=== PATIENT | female | born 1960 | race African-American/Black ===

== ENCOUNTER → 2016-12-01 | Outpatient (CLI) | payer BC ==
[~2016-12-01] MED LIST: ASPIRIN-LOW81 MG ORAL; HYDROCODON-ACE1 EA15 ORAL; IBUPROFEN600 MG ORAL; NORVASC10 MG ORAL
--- NOTE | 2016-12-01 12:28 | Diagnostic Imaging Report ---
Indication: Back pain for multiple months Technique: 4 views of the lumbar spine Comparison: None Findings: There is slight anterior offset of L4 on L5, without evidence of spondylolysis defect. The remainder of the bony alignment is normal. Vertebral body heights are preserved. Disc spaces are preserved. There is degenerative facet narrowing at L5-S1 on the right. The sacroiliac joint spaces are preserved. Pedicles are intact. Sacral arches are preserved. Incidentally noted are cholecystectomy clips Impression: No acute process Minimal degenerative changes, as described
--- NOTE | 2016-12-02 12:40 | Diagnostic Imaging Report ---
APPROVED REPORT CPT Code: 84751 Symptoms Comments: Pain VELOCITY MEASUREMENTS AND DOPPLER WAVEFORM ANALYSIS RIGHTcm/secWaveformSeverityLEFTcm/secWaveformSeverity Com Fem Art. TriphasicCom Fem Art. Triphasic Prof Fem Art. TriphasicProf Fem Art. Triphasic Fem Art Prox. TriphasicFem Art Prox. Triphasic Fem Art Mid. TriphasicFem Art Mid. Triphasic Fem Art Dist. TriphasicFem Art Dist. Triphasic Pop Art Prox. TriphasicPop Art Prox. Triphasic AVIATION SUPPORT EQUIPMENT REPAIRER Prox. TriphasicPTA Prox. Triphasic WILLIAM Prox. TriphasicATA Prox. Triphasic BILATERAL: Common femoral artery waveform analysis is within normal limits at rest. Color flow duplex sonography reveals minimal calcification throughout the superficial femoral, and popliteal arteries. There is no evidence of stenosis or occlusion within these segments. The tibioperoneal trunks were not well visualized. The posterior tibial, anterior tibial and dorsalis pedis arteries are also minimally calcified. Ankle-brachial indices and, Doppler tibial artery waveform analysis are within normal limits, bilaterally. LEVAR within normal limits as follows: 1.1 (right leg) and 1.1 (left leg).
--- NOTE | 2016-12-12 14:09 | Diagnostic Imaging Report ---
Indication: PAIN Technique: 3 views of the left knee Comparison: None Findings:There is degenerative narrowing of the medial joint compartment. No acute fractures. No dislocations. No gross suprapatellar effusion Impression:Degenerative changes, as described. No acute bony trauma
== END | disposition home or self-care (01) ==
LOC: RAD 10:24
DX: M79.604 Pain in right leg (principal); M54.9 Dorsalgia, unspecified
CPT/HCPCS: 72110; 93925

== ENCOUNTER 2017-01-22 22:41 | Inpatient (IN) | payer BC ==
[~2017-01-22] VITALS: Ht 167.6 cm; Wt 108.9 kg
[~2017-01-22 22:41] MED LIST changes: -ASPIRIN-LOW81 MG ORAL; -HYDROCODON-ACE1 EA15 ORAL
[2017-01-22] MEDS ORDERED: Morphine Sulfate 4mg/ml Inj IVP ONE (23:15)
[2017-01-22] MEDS ORDERED: Aspirin Baby 81mg ORAL ONE (23:15)
[2017-01-22 23:16] LABS: BASOPHILS % (AUTO) 1.3 % (0.0-2.0); EOSINOPHILS % (AUTO) 0.5 % (0.0-3.0); LYMPHOCYTES % (AUTO) 27.8 % (20.0-45.0); MEAN CORPUSCULAR HEMOGLOBIN 31.9 PG (27.0-31.0); MEAN CORPUSCULAR HGB CONC 32.6 G/DL (32.0-36.0); MEAN CORPUSCULAR VOLUME 98 FL (80-99); MEAN PLATELET VOLUME 8.1 FL (6.5-10.1); MONOCYTES % (AUTO) 7.5 % (1.0-10.0); PLATELET COUNT 214 K/UL (150-450); RED BLOOD COUNT 4.18 M/UL (4.20-5.40); RED CELL DISTRIBUTION WIDTH 13.1 % (11.6-14.8); WHITE BLOOD COUNT 5.2 K/UL (4.8-10.8)
[2017-01-22 23:20] VITALS: BP 106/45
--- NOTE | 2017-01-22 23:27 | Emergency Room Report ---
History of Present Illness General Chief Complaint: Chest Pain Source: Patient Present Illness HPI Is a 56-year-old female with a history of hypertension and chronic left hip pain. She said she would need a hip replacement per Dr. Hopper. She developed with substernal chest pain going to her neck. Has been ongoing since yesterday. Sharp in nature. Worse with movement. Denies any fever chills denies any nausea vomiting. Patient said that she is under more stress since her son was badly injured in an accident. No diaphoresis. No exertional component. Allergies: Coded Allergies: No Known Allergies (Unverified , 06/16/14) Patient History Past Medical History: see triage record, old chart reviewed, HTN Past Surgical History: other Pertinent Family History: none Social History: Denies: smoking Last Menstrual Period: NONE Now: No Immunizations: other Reviewed Nursing Documentation: PMH: Agreed, PSxH: Agreed Nursing Documentation-PMH Hx Hypertension: Yes Hx Cancer: No Hx Gastrointestinal Problems: No Review of Systems Eye: Denies: blurred vision, eye pain ENT: Denies: ear pain, nose congestion, throat swelling Respiratory: Denies: cough, shortness of breath Cardiovascular: Reports: chest pain, Denies: palpitations Gastrointestinal: Denies: abdominal pain, diarrhea, nausea, vomiting Musculoskeletal: Denies: back pain, joint pain Skin: Denies: rash Neurological: Denies: headache, numbness Endocrine: Denies: increased thirst, increased urine Hematologic/Lymphatic: Denies: easy bruising All Other Systems: negative except mentioned in HPI Physical Exam Vital Signs Date Time Temp Pulse Resp B/P Pulse Ox O2 Delivery O2 Flow Rate FiO2 01/22/17 22:48 98.4 84 18 143/62 98 Room Air vitals unremarkable Sp02 EP Interpretation: reviewed, normal General Appearance: well appearing, no apparent distress, alert Head: normocephalic, atraumatic Eyes: bilateral eye EOMI, bilateral eye PERRL ENT: hearing grossly normal, normal pharynx Neck: full range of motion, supple, no meningismus Respiratory: chest non-tender, lungs clear, normal breath sounds Cardiovascular #1: regular rate, rhythm, no murmur Gastrointestinal: normal bowel sounds, non tender, no mass, no organomegaly, no bruit, non-distended Musculoskeletal: back normal, gait/station normal, normal range of motion Psychiatric: mood/affect normal Skin: warm/dry Medical Decision Making Diagnostic Impression: Primary Impression: Chest pain Qualified Codes: R07.9 - Chest pain, unspecified Additional Impressions: Chronic left hip pain Obesity (BMI 30-39.9) ER Course Patient present with atypical chest pain. Is reproducible with palpation. No evidence of PE, dissection, dissection to name a few. Patient refused a chest x -ray. I doubt this is ACS. Because she continued to have pain after couple rounds and a lot of, will admit for further workup. She had a negative stress tests last year. Laboratory Tests Test 01/22/17 22:52 White Blood Count 5.2 K/UL (4.8-10.8) Red Blood Count 4.18 M/UL (4.20-5.40) L Hemoglobin 13.4 G/DL (12.0-16.0) Hematocrit 40.9 % (37.0-47.0) Mean Corpuscular Volume 98 FL (80-99) Mean Corpuscular Hemoglobin 31.9 PG (27.0-31.0) H Mean Corpuscular Hemoglobin Concent 32.6 G/DL (32.0-36.0) Red Cell Distribution Width 13.1 % (11.6-14.8) Platelet Count 214 K/UL (150-450) Mean Platelet Volume 8.1 FL (6.5-10.1) Neutrophils (%) (Auto) 63.0 % (45.0-75.0) Lymphocytes (%) (Auto) 27.8 % (20.0-45.0) Monocytes (%) (Auto) 7.5 % (1.0-10.0) Eosinophils (%) (Auto) 0.5 % (0.0-3.0) Basophils (%) (Auto) 1.3 % (0.0-2.0) Sodium Level 140 mEQ/L (135-145) Potassium Level 3.6 mEQ/L (3.4-4.9) Chloride Level 97 mEQ/L (98-107) L Carbon Dioxide Level 25 mEQ/L (20-30) Anion Gap 18 (5-15) H Blood Urea Nitrogen 19 mg/dL (7-23) Creatinine 0.8 mg/dL (0.5-0.9) Estimat Glomerular Filtration Rate > 60 mL/min (>60) Glucose Level 138 mg/dL (74-106) H Calcium Level 10.0 mg/dL (8.6-10.2) Total Bilirubin 0.5 mg/dL (0.0-1.2) Aspartate Amino Transf (AST/SGOT) 16 U/L (5-40) Alanine Aminotransferase (ALT/SGPT) 11 U/L (3-33) Alkaline Phosphatase 85 U/L (35-104) Total Creatine Kinase 85 U/L (26-140) Creatine Kinase MB < 1.5 ng/mL (< 3.8) Creatine Kinase MB Relative Index 1.7 Troponin I < 0.30 ng/mL (<=0.30) Pro-B-Type Natriuretic Peptide 64 pg/mL (0-125) Total Protein 7.5 g/dL (6.6-8.7) Albumin 4.5 g/dL (3.5-5.2) Globulin 3.0 g/dL Albumin/Globulin Ratio 1.5 (1.0-2.7) Lab Results Impression labs unremarkable EKG Diagnostic Results Rate: normal Rhythm: NSR ST Segments: no acute changes Rhythm Strip Diag. Results EP Interpretation: yes Rate: 75 Rhythm: NSR, no PVC's, no ectopy Chest X-Ray Diagnostic Results Other Impression pt refused cxr Last Vital Signs Date Time Temp Pulse Resp B/P Pulse Ox O2 Delivery O2 Flow Rate FiO2 01/22/17 22:54 84 18 Room Air 01/22/17 22:48 98.4 143/62 98 Status: improved Disposition: ADMITTED INPATIENT Condition: Serious Scripts Hydrocodone/Acetaminophen 5-325* (HYDROCODONE/ACETAMINOPHEN 5-325*) 1 Each Tablet 1 TAB ORAL Q6H Y for For Pain, #30 TAB 0 Refills Prov: WOOD RODRIGUEZ M.D. 01/23/17 Referrals: [facility],REFERRING (PCP) Patient Instructions: Nonspecific Chest Pain Additional Instructions: Followup with Your DrRyan in 2-3 days. Return if symptom worsen. WOOD RODRIGUEZ M.D. Jan 22, 2017 23:27
[2017-01-22 23:28] LABS: ALANINE AMINOTRANSFERASE 11 U/L (3-33); ALBUMIN/GLOBULIN RATIO 1.5 (1.0-2.7); ANION GAP 18 (5-15); ASPARTATE AMINO TRANSFERASE 16 U/L (5-40); CARBON DIOXIDE 25 mEQ/L (20-30); CHLORIDE 97 mEQ/L (98-107); CREATININE 0.8 mg/dL (0.5-0.9); GLOMERULAR FILTRATION RATE > 60 mL/min (>60); HEMOLYSIS 5; POTASSIUM 3.6 mEQ/L (3.4-4.9); SODIUM 140 mEQ/L (135-145); TOTAL PROTEIN 7.5 g/dL (6.6-8.7); TROPONIN I < 0.30 ng/mL (<=0.30)
[2017-01-22 23:40] LABS: CKMB < 1.5 ng/mL (< 3.8)
[2017-01-23] VITALS (9 sets, daily range): BP systolic 105–156; BP diastolic 46–83
[2017-01-23] MEDS ORDERED: HYDROmorphone 1mg/ml Carpuject ONE (00:37)
[2017-01-23] MEDS ORDERED: HYDROCODON-ACE1 EA15 ORAL (00:43)
[2017-01-23] MEDS ORDERED: HYDROmorphone 1mg/ml Carpuject IVP ONE ×2 (00:45→01:30)
[2017-01-23] MEDS ORDERED: Miralax 17gm pkt ORAL PRN (03:15)
[2017-01-23] MEDS ORDERED: Diltiazem 25mg/5ml IV PRN (03:15)
[2017-01-23] MEDS ORDERED: Norco 5mg/325mg tab ORAL PRN ×2 (03:15→07:42)
[2017-01-23] MEDS ORDERED: Enalaprilat 2.5mg/2ml Inj IV PRN (03:15)
[2017-01-23] MEDS ORDERED: DuoNeb 0.5-3(2.5)mg/3ml neb HHN PRN (03:15)
[2017-01-23] MEDS ORDERED: Nitroglycerin Subl 0.4mg tab (Bottle Of 25) SL PRN (03:15)
[2017-01-23] MEDS ORDERED: Ketorolac 30mg Inj IV PRN (03:15)
[2017-01-23] MEDS ORDERED: ASPIRIN-LOW81 MG ORAL (03:38)
[2017-01-23] MEDS: Morphine Sulfate 2mg/ml Inj IVP PRN ×3 (06:18→22:01)
[2017-01-23] MEDS: Aspirin Baby 81mg ORAL SCH (08:58)
[2017-01-23] MEDS: Heparin 5000 units/ml inj SUBQ SCH ×2 (08:59→21:56)
[2017-01-23 10:08] LABS: TROPONIN I < 0.30 ng/mL (<=0.30)
--- NOTE | 2017-01-23 11:44 | Diagnostic Imaging Report ---
Indication: SOB Technique: One view of the chest Comparison: 11/04/2015 Findings: Lung and pleural spaces are clear. The heart is enlarged. The pulmonary vascularity is normal. The aorta is tortuous. Impression: No acute process Mild cardiomegaly
--- NOTE | 2017-01-23 11:57 | Consultation ---
History of Present Illness General Date patient seen: Jan 23, 2017 Chief Complaint: Chest Pain Reason for Consultation: chest pain Present Illness HPI 56-year-old female with a history of hypertension [place] [facility] [place] of substernal chest pain going to her neck. She was admitted to telemetry for the same reason. She had a stress testing, which was negative. Allergies: Coded Allergies: No Known Allergies (Unverified , 06/16/14) Medication History Scheduled Amlodipine Besylate (Norvasc), 10 MG ORAL DAILY, (Reported) Aspirin (Aspirin EC), 81 MG ORAL DAILY, (Reported) Scheduled PRN Hydrocodone/Acetaminophen 5-325* (Hydrocodone/Acetaminophen 5-325*), 1 TAB ORAL Q6H PRN for For Pain Ibuprofen* (Motrin*), 600 MG ORAL Q8H PRN for For Pain Patient History Healthcare decision maker Resuscitation status Full Code Advanced Directive on File No Past Medical/Surgical History Past Medical/Surgical History: (1) Obesity (BMI 30-39.9) (2) Chronic left hip pain Review of Systems All Other Systems: negative except mentioned in HPI Physical Exam General Appearance: WD/WN, no apparent distress Lines, tubes and drains: peripheral, central line HEENT: normocephalic, atraumatic Neck: non-tender, normal alignment Respiratory/Chest: chest wall non-tender, lungs clear Cardiovascular/Chest: normal peripheral pulses, normal rate Abdomen: normal bowel sounds, non tender Genitourinary/Rectal: normal genital exam Extremities: normal range of motion Skin Exam: normal pigmentation Last 24 Hour Vital Signs Date Time Temp Pulse Resp B/P Pulse Ox O2 Delivery O2 Flow Rate FiO2 01/23/17 09:37 75 16 Room Air 21 01/23/17 09:26 97.7 78 16 146/83 95 Room Air 01/23/17 09:24 97.7 78 16 146/83 95 Room Air 01/23/17 08:58 60 146/83 01/23/17 08:00 97.7 78 16 143/83 95 01/23/17 04:17 97.8 57 19 156/78 98 Room Air 01/23/17 04:00 59 01/23/17 02:31 72 18 107/46 100 Room Air 01/23/17 02:23 98.2 72 18 107/46 100 Room Air 01/23/17 02:01 98.2 4/4/17 00:50 98.4 74 21 105/47 100 Room Air 01/22/17 23:42 98.2 01/22/17 23:20 98.2 72 24 106/45 96 Room Air 01/22/17 22:54 84 18 Room Air 01/22/17 22:48 98.4 84 18 143/62 98 Room Air Intake and Output 01/22/17 01/23/17 19:00 07:00 Intake Total 1000 ml Balance 1000 ml Intake IV Total 1000 ml # Voids 2 Laboratory Tests Test 01/22/17 22:52 01/23/17 09:15 White Blood Count 5.2 K/UL (4.8-10.8) Red Blood Count 4.18 M/UL (4.20-5.40) L Hemoglobin 13.4 G/DL (12.0-16.0) Hematocrit 40.9 % (37.0-47.0) Mean Corpuscular Volume 98 FL (80-99) Mean Corpuscular Hemoglobin 31.9 PG (27.0-31.0) H Mean Corpuscular Hemoglobin Concent 32.6 G/DL (32.0-36.0) Red Cell Distribution Width 13.1 % (11.6-14.8) Platelet Count 214 K/UL (150-450) Mean Platelet Volume 8.1 FL (6.5-10.1) Neutrophils (%) (Auto) 63.0 % (45.0-75.0) Lymphocytes (%) (Auto) 27.8 % (20.0-45.0) Monocytes (%) (Auto) 7.5 % (1.0-10.0) Eosinophils (%) (Auto) 0.5 % (0.0-3.0) Basophils (%) (Auto) 1.3 % (0.0-2.0) Sodium Level 140 mEQ/L (135-145) Potassium Level 3.6 mEQ/L (3.4-4.9) Chloride Level 97 mEQ/L (98-107) L Carbon Dioxide Level 25 mEQ/L (20-30) Anion Gap 18 (5-15) H Blood Urea Nitrogen 19 mg/dL (7-23) Creatinine 0.8 mg/dL (0.5-0.9) Estimat Glomerular Filtration Rate > 60 mL/min (>60) Glucose Level 138 mg/dL (74-106) H Calcium Level 10.0 mg/dL (8.6-10.2) Total Bilirubin 0.5 mg/dL (0.0-1.2) Aspartate Amino Transf (AST/SGOT) 16 U/L (5-40) Alanine Aminotransferase (ALT/SGPT) 11 U/L (3-33) Alkaline Phosphatase 85 U/L (35-104) Total Creatine Kinase 85 U/L (26-140) Creatine Kinase MB < 1.5 ng/mL (< 3.8) Creatine Kinase MB Relative Index 1.7 Troponin I < 0.30 ng/mL (<=0.30) < 0.30 ng/mL (<=0.30) Pro-B-Type Natriuretic Peptide 64 pg/mL (0-125) Total Protein 7.5 g/dL (6.6-8.7) Albumin 4.5 g/dL (3.5-5.2) Globulin 3.0 g/dL Albumin/Globulin Ratio 1.5 (1.0-2.7) Height (Feet): 5 Height (Inches): 6.00 Weight (Pounds): 240 Medications Current Medications Medications (Trade) Dose Ordered Sig/[place] Route PRN Reason Start Time Stop Time Status Last Admin Dose Admin Acetaminophen (Tylenol) 650 mg Q4H PRN ORAL FEVER 01/23/17 03:15 02/22/17 03:14 Acetaminophen/ Hydrocodone Bitart ([place] 5/325) 1 tab Q6H PRN ORAL Mild Pain (Pain Scale 1-3) 01/23/17 07:42 01/30/17 03:14 Albuterol/ Ipratropium (DuoNeb 0.5-3(2.5)mg/3ml) 3 ml EVERY 4 HOURS PRN HHN Shortness of Breath 01/23/17 03:15 01/28/17 03:14 Amlodipine Besylate (Norvasc) 10 mg DAILY ORAL 01/23/17 09:00 02/22/17 08:59 01/23/17 08:58 Aspirin (ASA) 162 mg DAILY ORAL 01/23/17 09:00 02/22/17 08:59 01/23/17 08:58 Diltiazem HCl (Cardizem) 10 mg EVERY HOUR PRN IV heart rate more than 120, 01/23/17 03:15 02/22/17 03:14 Enalaprilat (Vasotec) 2.5 mg EVERY 6 HOURS PRN IV sbp more than 160 01/23/17 03:15 02/22/17 03:14 Heparin Sodium (Porcine) (Heparin 5000 units/ml) 5,000 units EVERY 12 HOURS SUBQ 01/23/17 09:00 02/22/17 08:59 01/23/17 08:59 Ketorolac Tromethamine (Toradol 30mg) 30 mg Q6HR PRN IV moderate pain ( 4-6) 01/23/17 03:15 01/28/17 03:14 Morphine Sulfate (Morphine Sulfate) 2 mg EVERY 4 HOURS PRN IVP severe Pain (Pain Scale 7-10) 01/23/17 03:15 01/30/17 03:14 01/23/17 06:18 Nitroglycerin (Ntg) 0.4 mg Every 5 Minutes PRN SL Prn Chest Pain 01/23/17 03:15 02/22/17 03:14 Ondansetron HCl (Zofran) 4 mg Q6H PRN IVP Nausea & Vomiting 01/23/17 03:15 02/22/17 03:14 01/23/17 06:17 Polyethylene Glycol (Miralax) 17 gm DAILYPRN PRN ORAL Constipation 01/23/17 03:15 02/22/17 03:14 Temazepam (Restoril) 15 mg HSPRN PRN ORAL Insomnia 01/23/17 03:15 01/30/17 03:14 Assessment/Plan Problem List: (1) ACS (acute coronary syndrome) ICD Codes: I24.9 - Acute ischemic heart disease, unspecified SNOMED: 033835254 (2) Hip pain, left ICD Codes: M25.552 - Pain in left hip SNOMED: 61861363 (3) Stress ICD Codes: F43.9 - Reaction to severe stress, unspecified SNOMED: 78856632, 879293201 Assessment/Plan serial ekg, troponin, echo cardiology evaluation. PERLA LUNA Jan 23, 2017 11:57
--- NOTE | 2017-01-23 15:02 | Cardiology Progress Note ---
Assessment/Plan Assessment/Plan sean pain atypical left hip / leg pain obesity htn thyroid nodule all torp neg perfusion imaging [id number] Objective Last 24 Hour Vital Signs Date Time Temp Pulse Resp B/P Pulse Ox O2 Delivery O2 Flow Rate FiO2 01/23/17 12:07 64 01/23/17 11:54 98.2 62 18 139/67 98 Room Air 01/23/17 09:37 75 16 Room Air 21 01/23/17 09:26 97.7 78 16 146/83 95 Room Air 01/23/17 09:24 97.7 78 16 146/83 95 Room Air 01/23/17 08:58 60 146/83 01/23/17 08:08 59 01/23/17 08:00 97.7 78 16 143/83 95 01/23/17 04:17 97.8 57 19 156/78 98 Room Air 01/23/17 04:00 59 01/23/17 02:31 72 18 107/46 100 Room Air 01/23/17 02:23 98.2 72 18 107/46 100 Room Air 01/23/17 02:01 98.2 01/23/17 00:50 98.4 74 21 105/47 100 Room Air 01/22/17 23:42 98.2 01/22/17 23:20 98.2 72 24 106/45 96 Room Air 01/22/17 22:54 84 18 Room Air 01/22/17 22:48 98.4 84 18 143/62 98 Room Air Intake and Output 01/22/17 01/23/17 19:00 07:00 Intake Total 1000 ml Balance 1000 ml IV Total 1000 ml # Voids 2 Laboratory Tests Test 01/22/17 22:52 01/23/17 09:15 White Blood Count 5.2 K/UL (4.8-10.8) Red Blood Count 4.18 M/UL (4.20-5.40) L Hemoglobin 13.4 G/DL (12.0-16.0) Hematocrit 40.9 % (37.0-47.0) Mean Corpuscular Volume 98 FL (80-99) Mean Corpuscular Hemoglobin 31.9 PG (27.0-31.0) H Mean Corpuscular Hemoglobin Concent 32.6 G/DL (32.0-36.0) Red Cell Distribution Width 13.1 % (11.6-14.8) Platelet Count 214 K/UL (150-450) Mean Platelet Volume 8.1 FL (6.5-10.1) Neutrophils (%) (Auto) 63.0 % (45.0-75.0) Lymphocytes (%) (Auto) 27.8 % (20.0-45.0) Monocytes (%) (Auto) 7.5 % (1.0-10.0) Eosinophils (%) (Auto) 0.5 % (0.0-3.0) Basophils (%) (Auto) 1.3 % (0.0-2.0) Sodium Level 140 mEQ/L (135-145) Potassium Level 3.6 mEQ/L (3.4-4.9) Chloride Level 97 mEQ/L (98-107) L Carbon Dioxide Level 25 mEQ/L (20-30) Anion Gap 18 (5-15) H Blood Urea Nitrogen 19 mg/dL (7-23) Creatinine 0.8 mg/dL (0.5-0.9) Estimat Glomerular Filtration Rate > 60 mL/min (>60) Glucose Level 138 mg/dL (74-106) H Calcium Level 10.0 mg/dL (8.6-10.2) Total Bilirubin 0.5 mg/dL (0.0-1.2) Aspartate Amino Transf (AST/SGOT) 16 U/L (5-40) Alanine Aminotransferase (ALT/SGPT) 11 U/L (3-33) Alkaline Phosphatase 85 U/L (35-104) Total Creatine Kinase 85 U/L (26-140) Creatine Kinase MB < 1.5 ng/mL (< 3.8) Creatine Kinase MB Relative Index 1.7 Troponin I < 0.30 ng/mL (<=0.30) < 0.30 ng/mL (<=0.30) Pro-B-Type Natriuretic Peptide 64 pg/mL (0-125) Total Protein 7.5 g/dL (6.6-8.7) Albumin 4.5 g/dL (3.5-5.2) Globulin 3.0 g/dL Albumin/Globulin Ratio 1.5 (1.0-2.7) AWILDA ARRINGTON Jan 23, 2017 15:02
--- NOTE | 2017-01-23 17:16 | History & Physical ---
History and Physical History & Physicial Dictated for Int Med-Dr Schmidt no. [id number]. MAYRA OVERTON Jan 23, 2017 17:16
[2017-01-24 00:17] VITALS: BP 120/72
--- NOTE | 2017-01-24 01:18 | Consultation ---
DATE OF CONSULTATION: 01/23/2017 CARDIOLOGY CONSULTATION CONSULTING PHYSICIAN: Chris Spicer M.D. REFERRING PHYSICIAN: Brenton Baca M.D. REASON FOR REFERRAL: Chest pain. HISTORY OF PRESENT ILLNESS: This is a 56-year-old female, who has got a history of high blood pressure, perked up two days ago. She usually noticed some discomfort in the left side of the chest and this discomfort got worse to the point that when she took a deep breath or tried to sit up or sit back down, she noted this pain. She also has had some shortness of breath and chest pain. There is no PND and no orthopnea. She uses [id number] pillow. There is no dizziness or lightheadedness on standing. She has some palpitation only at the time of physical activity. She has not noticed any change in the pain with walking, however, indicates she eventually presented to the hospital here at [facility] and therefore this consultation was requested. She does not have any chest pain at the present time. PAST MEDICAL HISTORY: Positive for high blood pressure. No heart attack. No cancer. No stroke. No hepatitis or tuberculosis. No asthma or emphysema. No ulcers. No kidney problems. No liver problems. She has had a thyroid nodule that was biopsied and apparently was negative, possibly some arthritis. There is no blood clots any more. No problem with vasculature of the heart or anywhere else. Chronic varicose veins and lower extremity edema and also right lower lobe pulmonary nodule that she has had on prior occasions. ALLERGIES: She is not allergic to any medications. SOCIAL HISTORY: She is a nurse here in the hospital. She does not smoke. Occasionally drinks alcoholic beverages. No drug use. She is and she has got kids. REVIEW OF SYSTEMS: Gastrointestinal: She has got problems with constipation. Genitourinary: Negative. Pulmonary: Some coughing occasionally. Constitutional: Negative. Neurologic: Negative. Musculoskeletal: She has had significant pain in the hip for which she has been evaluated on several occasions and eventually has been referred to Dr. Hopper and a diagnosis of hip problem for which she is to undergo a surgery soon. PHYSICAL EXAMINATION: GENERAL: Shows to be an overweight, middle-aged female, in no apparent respiratory distress. NECK: Supple. No jugular venous distention. No abdominojugular reflux noted. LUNGS: Clear to auscultation and percussion. CHEST: Chest wall is nontender. No reduction of the patient's pain that she has been experiencing for the past few days. CARDIAC: S1 is normal. S2 is normal. Regular rate and rhythm. No heaves, thrills, gallops, or rubs are noted. ABDOMEN: Soft, obese. Positive bowel sounds. Nontender. EXTREMITIES: She has chronic venous stasis changes and some scarring in the lower extremity. NEUROLOGIC: She is awake, alert, responsive, in no apparent respiratory distress. LABORATORY AND DIAGNOSTIC DATA: Her laboratory values, white count of 5.3, hemoglobin 13.1, and platelet count of 214,000. Sodium is 140, potassium 3.6, chloride 97, bicarbonate 25, BUN 19, creatinine 0.6, and glucose of 138. Calcium is 10. Liver function tests are normal. Two sets of cardiac enzymes from between last night and today are negative. Her ProBNP is only 64. She had an x-ray of her chest that shows mild cardiomegaly. No acute processes are noted. She has previously had some arterial duplex of the lower extremities that shows minimal of the superficial, femoral, and popliteal arteries. No evidence of stenosis or occlusion in November of this year, and she has previously had a workup including echocardiography back in 2016 that showed ejection fraction of 55% to 60%. No other significant abnormalities. The perfusion imaging last year also showed nonischemic response. Ejection fraction at that time was estimated 49%. ASSESSMENT AND PLAN: 1. Atypical chest pain. 2. History of hypertension. 3. Obesity. 4. Left hip pain, possibly arthritic in origin. 5. Thyroid nodule, status post aspiration. Dr. Baca, this patient was seen in cardiac consultation. The patient's pain is rather atypical. Although she has had chest pain constantly for one or two days prior to admission, her cardiac enzymes two sets were all negative. Her electrocardiogram that was performed shows normal sinus rhythm. No ST or T wave abnormalities. Echocardiogram was ordered and a preliminary report shows ejection fraction of 60% to 65%. No significant valvular problems. She has no shortness of breath to be of any concern. She is having an upcoming surgical procedure of her left hip. In light of the fact that she has had the chest pain that is atypical, she may benefit from repeating the myocardial perfusion imaging. That will be ordered for tomorrow. I have instructed the patient not to drink anything that may have caffeine and we will further pursue depending on results of the perfusion imaging as necessary. Chris Spicer M.D. DR: LAKSHMI JOB#: [id number] CC:
--- NOTE | 2017-01-24 01:18 | History and Physical Report ---
DATE OF ADMISSION: 01/23/2017 CHIEF COMPLAINT: The patient is a 56-year-old female, who presents with chief complaint of chest pain. HISTORY OF PRESENT ILLNESS: The patient has a history of osteoarthritis of bilateral hips. The patient is scheduled for left hip replacement by Dr. Hopper. The patient states she began to experience chest pain approximately two days ago. Chest pain has been on and off. Chest pain radiates to the back. Pain also radiates to the left neck. The patient presented to [facility]. The patient was admitted for chest pain to rule out acute myocardial infarction. REVIEW OF SYSTEMS: Constitutional: The patient denies weight loss or gain. The patient denies fevers or chills. HEENT: The patient denies ear or throat pain. Cardiovascular: The patient complains of chest pain as above. The patient denies palpitations. Chest: The patient denies wheezing or shortness of breath. Abdomen: The patient denies nausea, vomiting, or constipation. Genitourinary: The patient denies dysuria or increased frequency of urination. Neuromuscular: The patient denies seizures or generalized weakness. PAST MEDICAL HISTORY: Significant for: 1. Hypertension. 2. Osteoarthritis of the bilateral hips. PAST SURGICAL HISTORY: The patient denies. CURRENT MEDICATIONS: 1. Amlodipine 10 mg one tablet p.o. daily. 2. Aspirin 81 mg one tablet p.o. daily. 3. [place] 5/325 mg one tablet p.o. q.6 hours as needed. ALLERGIES: No known drug allergies. SOCIAL HISTORY: The patient is and works as a SPECIAL EVENTS DIRECTOR. The patient is currently on disability secondary to osteoarthritis as above. The patient denies tobacco use. The patient admits to occasional alcohol use. FAMILY HISTORY: Significant for diabetes in the patient's mother. Family history negative for coronary artery disease. PHYSICAL EXAMINATION: VITAL SIGNS: Temperature 97.7 degrees, respirations 16, pulse 78, and blood pressure 146/83. GENERAL: Generally, the patient is a well-developed and well-nourished slightly obese, female, no apparent distress. HEENT: Eyes, pupils are equal and responsive to light and accommodation. Extraocular movements are intact. NECK: Supple. No lymphadenopathy. CHEST: Lungs are clear to auscultation bilaterally without wheezes or rales. CARDIOVASCULAR: Regular rhythm and rate. S1 and S2. No murmurs, rubs, or gallops. ABDOMEN: Soft, nontender, and nondistended. Positive bowel sounds. No hepatosplenomegaly, currently no rebound or guarding. EXTREMITIES: Negative for clubbing, cyanosis, or edema. RECTAL/GENITALIA: Refused. NEUROLOGICAL: Neurologically, cranial nerves II through XII grossly intact without focal deficits. Motor strength is 5/5 bilaterally. Deep tendon reflexes are 2+ plantar. LABORATORY STUDIES: WBC 5.3, hemoglobin 15.4, hematocrit 40.9, and platelets 214,000. Sodium 140, potassium 3.6, chloride 97, CO2 25, BUN 19, creatinine 0.8, glucose 138, troponin less than 0.3. An EKG demonstrated normal sinus rhythm at approximately 75 beats per minute. There are no acute ST changes or Q waves noted. A chest x-ray was reported as no acute disease. There was mild cardiomegaly noted. ASSESSMENT: This is a 56-year-old female. 1. Chest pain. 2. Hypertension. 3. Osteoarthritis of bilateral hips. TREATMENT: 1. Chest pain. A Cardiology consultation was obtained with Dr. Schmidt and Dr. Spicer. An echocardiogram is pending. An Adenosine Cardiolite stress test is pending. We will follow recommendations of Cardiology. Serial troponin levels will be performed. 2. Hypertension, continue amlodipine as above. 3. Osteoarthritis of the bilateral hips. The patient has been followed as an outpatient by Dr. Hopper. Frederick Lopez M.D. DR: TEE/karan JOB#: [id number] CC:
[2017-01-24 04:08] VITALS: BP 122/62
[2017-01-24 06:55] LABS: INR 1.1 (0.9-1.1); PROTHROMBIN TIME 10.9 SEC (9.30-11.50)
[2017-01-24 07:08] LABS: ANION GAP 14 (5-15); CALCIUM 9.3 mg/dL (8.6-10.2); CARBON DIOXIDE 29 mEQ/L (20-30); CHLORIDE 101 mEQ/L (98-107); CREATININE 0.9 mg/dL (0.5-0.9); GLOMERULAR FILTRATION RATE > 60 mL/min (>60); HEMOLYSIS 2; POTASSIUM 4.2 mEQ/L (3.4-4.9); SODIUM 144 mEQ/L (135-145); TROPONIN I < 0.30 ng/mL (<=0.30)
[2017-01-24 07:09] LABS: CHOLESTEROL 165 mg/dL (< 200); CHOLESTEROL/HDL RATIO 2.5 (3.3-4.4); CRP QUANT < 0.3 mg/dL (< 0.5); HEMOLYSIS 2; LDL CHOLESTEROL (CALC.) 87 mg/dL (60-99)
[2017-01-24 07:19] LABS: THYROID STIMULATING HORMONE 0.767 uIU/mL (0.300-4.500)
[2017-01-24 07:20] LABS: MEAN CORPUSCULAR HEMOGLOBIN 31.4 PG (27.0-31.0); MEAN CORPUSCULAR HGB CONC 31.8 G/DL (32.0-36.0); MEAN CORPUSCULAR VOLUME 99 FL (80-99); MEAN PLATELET VOLUME 7.7 FL (6.5-10.1); PLATELET COUNT 187 K/UL (150-450); RED BLOOD COUNT 3.61 M/UL (4.20-5.40); RED CELL DISTRIBUTION WIDTH 13.4 % (11.6-14.8); WHITE BLOOD COUNT 3.2 K/UL (4.8-10.8)
[2017-01-24 08:20] VITALS: BP 132/70
[2017-01-24] MEDS: Aspirin Baby 81mg ORAL SCH (08:37)
[2017-01-24] MEDS: Heparin 5000 units/ml inj SUBQ SCH (08:46)
--- NOTE | 2017-01-24 10:36 | Internal Med Progress Note ---
Subjective Date of Service: Jan 24, 2017 Physician Name Frederick Overton Attending Physician Jason Schmidt MD Current Medications Medications (Trade) Dose Ordered Sig/[place] Route PRN Reason Start Time Stop Time Status Last Admin Dose Admin Acetaminophen (Tylenol) 650 mg Q4H PRN ORAL FEVER 01/23/17 03:15 02/22/17 03:14 Acetaminophen/ Hydrocodone Bitart ([place] 5/325) 1 tab Q6H PRN ORAL Mild Pain (Pain Scale 1-3) 01/23/17 07:42 01/30/17 03:14 01/24/17 08:44 Albuterol/ Ipratropium (DuoNeb 0.5-3(2.5)mg/3ml) 3 ml EVERY 4 HOURS PRN HHN Shortness of Breath 01/23/17 03:15 01/28/17 03:14 Amlodipine Besylate (Norvasc) 10 mg DAILY ORAL 01/23/17 09:00 02/22/17 08:59 01/23/17 08:58 Aspirin (ASA) 162 mg DAILY ORAL 01/23/17 09:00 02/22/17 08:59 01/24/17 08:37 Diltiazem HCl (Cardizem) 10 mg EVERY HOUR PRN IV heart rate more than 120, 01/23/17 03:15 02/22/17 03:14 Enalaprilat (Vasotec) 2.5 mg EVERY 6 HOURS PRN IV sbp more than 160 01/23/17 03:15 02/22/17 03:14 Heparin Sodium (Porcine) (Heparin 5000 units/ml) 5,000 units EVERY 12 HOURS SUBQ 01/23/17 09:00 02/22/17 08:59 01/24/17 08:46 Ketorolac Tromethamine (Toradol 30mg) 30 mg Q6HR PRN IV moderate pain ( 4-6) 01/23/17 03:15 01/28/17 03:14 Morphine Sulfate (Morphine Sulfate) 2 mg EVERY 4 HOURS PRN IVP severe Pain (Pain Scale 7-10) 01/23/17 03:15 01/30/17 03:14 01/23/17 22:01 Nitroglycerin (Ntg) 0.4 mg Every 5 Minutes PRN SL Prn Chest Pain 01/23/17 03:15 02/22/17 03:14 Ondansetron HCl (Zofran) 4 mg Q6H PRN IVP Nausea & Vomiting 01/23/17 03:15 02/22/17 03:14 01/24/17 08:44 Polyethylene Glycol (Miralax) 17 gm DAILYPRN PRN ORAL Constipation 01/23/17 03:15 02/22/17 03:14 Temazepam (Restoril) 15 mg HSPRN PRN ORAL Insomnia 01/23/17 03:15 01/30/17 03:14 Allergies: Coded Allergies: No Known Allergies (Unverified , 06/16/14) ROS Limited/Unobtainable: No Constitutional: Reports: no symptoms HEENT: Reports: no symptoms Cardiovascular: Reports: chest pain Respiratory: Reports: no symptoms Gastrointestinal/Abdominal: Reports: no symptoms Genitourinary: Reports: no symptoms Neurologic/Psychiatric: Reports: no symptoms Subjective 56 YO F admitted with chest pain. Await adenosine Cardiolite stress test today. Cover for Int Med-Dr Schmidt. Objective Last Vital Signs Date Time Temp Pulse Resp B/P Pulse Ox O2 Delivery O2 Flow Rate FiO2 01/24/17 08:43 53 132/70 01/24/17 08:20 97.5 18 96 Room Air 01/23/17 20:10 21 General Appearance: WD/WN, no apparent distress, alert EENT: PERRL/EOMI, normal ENT inspection, TMs normal Neck: non-tender, normal alignment, supple, normal inspection Cardiovascular: normal peripheral pulses, regular rhythm, no gallop/murmur, no JVD, bradycardia Respiratory/Chest: chest wall non-tender, lungs clear, normal breath sounds, no respiratory distress, no accessory muscle use Abdomen: normal bowel sounds, non tender, soft, no organomegaly, no mass Extremities: normal range of motion Neurologic: relocation commissioner II-XII grossly normal, no motor/sensory deficits Skin: normal pigmentation, warm/dry Laboratory Tests Test 01/24/17 04:45 White Blood Count 3.2 K/UL (4.8-10.8) L Red Blood Count 3.61 M/UL (4.20-5.40) L Hemoglobin 11.3 G/DL (12.0-16.0) L Hematocrit 35.6 % (37.0-47.0) L Mean Corpuscular Volume 99 FL (80-99) Mean Corpuscular Hemoglobin 31.4 PG (27.0-31.0) H Mean Corpuscular Hemoglobin Concent 31.8 G/DL (32.0-36.0) L Red Cell Distribution Width 13.4 % (11.6-14.8) Platelet Count 187 K/UL (150-450) Mean Platelet Volume 7.7 FL (6.5-10.1) Neutrophils (%) (Auto) % (45.0-75.0) Lymphocytes (%) (Auto) % (20.0-45.0) Monocytes (%) (Auto) % (1.0-10.0) Eosinophils (%) (Auto) % (0.0-3.0) Basophils (%) (Auto) % (0.0-2.0) Neutrophils % (Manual) Pending Lymphocytes % (Manual) Pending Platelet Estimate Pending Platelet Morphology Pending Prothrombin Time 10.9 SEC (9.30-11.50) Prothromb Time International Ratio 1.1 (0.9-1.1) Activated Partial Thromboplast Time 23 SEC (23-33) Sodium Level 144 mEQ/L (135-145) Potassium Level 4.2 mEQ/L (3.4-4.9) Chloride Level 101 mEQ/L (98-107) Carbon Dioxide Level 29 mEQ/L (20-30) Anion Gap 14 (5-15) Blood Urea Nitrogen 15 mg/dL (7-23) Creatinine 0.9 mg/dL (0.5-0.9) Estimat Glomerular Filtration Rate > 60 mL/min (>60) Glucose Level 109 mg/dL (74-106) H Calcium Level 9.3 mg/dL (8.6-10.2) Troponin I < 0.30 ng/mL (<=0.30) C-Reactive Protein, Quantitative < 0.3 mg/dL (< 0.5) Triglycerides Level 61 mg/dL (< 150) Cholesterol Level 165 mg/dL (< 200) LDL Cholesterol 87 mg/dL (60-99) HDL Cholesterol 66 mg/dL (> 60) H Cholesterol/HDL Ratio 2.5 (3.3-4.4) L Thyroid Stimulating Hormone (TSH) 0.767 uIU/mL (0.300-4.500) Intake and Output 01/23/17 01/24/17 19:00 07:00 Intake Total 640 ml 260 ml Balance 640 ml 260 ml Intake Oral 640 ml 260 ml # Voids 2 2 Assessment/Plan Problem List: (1) HTN (hypertension) Assessment & Plan: cont norvasc, cardizem and vasotec (2) Osteoarthritis of left hip Assessment & Plan: Scheduled for total hip replacement by Dr Hollingsworth. (3) Bradycardia (4) Chest pain Assessment & Plan: Await adenosine Cardiolite stress test today. see cardiology note. (5) Hip pain, left Status: not improved FREDERICK OVERTON Jan 24, 2017 10:36
[2017-01-24 10:50] LABS: BAND NEUTROPHILS % (MANUAL) 0 % (0-8); BASOPHILS % (MANUAL) 0 % (0-2); EOSINOPHILS % (MANUAL) 0 % (0-3); HYPOCHROMASIA 1+; LYMPHOCYTES % (MANUAL) 33 % (20-45); MACROCYTES 1+; NEUTROPHILS % (MANUAL) 52 % (45-75); PLATELET ESTIMATE ADEQUATE; PLATELET MORPHOLOGY NORMAL; TOTAL CELLS COUNTED 100
[2017-01-24 11:27] VITALS: BP 127/70
[2017-01-24] MEDS ORDERED: Adenosine Inj IVP ONE (12:30)
--- NOTE | 2017-01-24 12:43 | Pulmonology Progress Note ---
Assessment/Plan Problems: (1) ACS (acute coronary syndrome) (2) Hip pain, left (3) Stress Assessment/Plan stress test in process Subjective ROS Limited/Unobtainable: No Interval Events: stress test in process Allergies: Coded Allergies: No Known Allergies (Unverified , 06/16/14) Objective Last 24 Hour Vital Signs Date Time Temp Pulse Resp B/P Pulse Ox O2 Delivery O2 Flow Rate FiO2 01/24/17 11:27 97.5 55 18 127/70 95 Room Air 01/24/17 08:43 53 132/70 01/24/17 08:20 97.5 60 18 132/70 96 Room Air 01/24/17 08:00 53 01/24/17 06:49 53 16 Room Air 01/24/17 04:08 98.6 57 18 122/62 95 Room Air 01/24/17 04:00 55 01/24/17 00:17 98.1 72 19 120/72 98 Room Air 01/24/17 00:00 67 01/23/17 20:10 67 16 Room Air 21 01/23/17 20:00 98.1 72 21 118/49 97 Room Air 01/23/17 20:00 71 01/23/17 16:00 98.1 73 21 131/72 99 Room Air 01/23/17 16:00 71 Intake and Output 01/23/17 01/24/17 19:00 07:00 Intake Total 640 ml 260 ml Balance 640 ml 260 ml Intake Oral 640 ml 260 ml # Voids 2 2 General Appearance: WD/WN HEENT: normocephalic, anicteric Respiratory/Chest: chest wall non-tender, lungs clear Extremities: no cyanosis, no clubbing Laboratory Tests 01/24/17 04:45: White Blood Count 3.2L, Red Blood Count 3.61L, Hemoglobin 11.3L, Hematocrit 35.6L, Mean Corpuscular Volume 99, Mean Corpuscular Hemoglobin 31.4H, Mean Corpuscular Hemoglobin Concent 31.8L, Red Cell Distribution Width 13.4, Platelet Count 187, Mean Platelet Volume 7.7, Neutrophils (%) (Auto) , Lymphocytes (%) (Auto) , Monocytes (%) (Auto) , Eosinophils (%) (Auto) , Basophils (%) (Auto) , Differential Total Cells Counted 100, Neutrophils % ( Manual) 52, Lymphocytes % (Manual) 33, Monocytes % (Manual) 15H, Eosinophils % ( Manual) 0, Basophils % (Manual) 0, Band Neutrophils 0, Platelet Estimate Adequate, Platelet Morphology Normal, Hypochromasia 1+, Macrocytosis 1+, Prothrombin Time 10.9, Prothromb Time International Ratio 1.1, Activated Partial Thromboplast Time 23, Sodium Level 144, Potassium Level 4.2, Chloride Level 101, Carbon Dioxide Level 29, Anion Gap 14, Blood Urea Nitrogen 15, Creatinine 0.9, Estimat Glomerular Filtration Rate > 60, Glucose Level 109H, Calcium Level 9.3, Troponin I < 0.30, C-Reactive Protein, Quantitative < 0.3, Triglycerides Level 61, Cholesterol Level 165, LDL Cholesterol 87, HDL Cholesterol 66H, Cholesterol/HDL Ratio 2.5L, Thyroid Stimulating Hormone (TSH) 0.767 Current Medications Medications (Trade) Dose Ordered Sig/[place] Route PRN Reason Start Time Stop Time Status Last Admin Dose Admin Acetaminophen (Tylenol) 650 mg Q4H PRN ORAL FEVER 01/23/17 03:15 02/22/17 03:14 Acetaminophen/ Hydrocodone Bitart ([place] 5/325) 1 tab Q6H PRN ORAL Mild Pain (Pain Scale 1-3) 01/23/17 07:42 01/30/17 03:14 01/24/17 08:44 Albuterol/ Ipratropium (DuoNeb 0.5-3(2.5)mg/3ml) 3 ml EVERY 4 HOURS PRN HHN Shortness of Breath 01/23/17 03:15 01/28/17 03:14 Amlodipine Besylate (Norvasc) 10 mg DAILY ORAL 01/23/17 09:00 02/22/17 08:59 01/23/17 08:58 Aspirin (ASA) 162 mg DAILY ORAL 01/23/17 09:00 02/22/17 08:59 01/24/17 08:37 Diltiazem HCl (Cardizem) 10 mg EVERY HOUR PRN IV heart rate more than 120, 01/23/17 03:15 02/22/17 03:14 Enalaprilat (Vasotec) 2.5 mg EVERY 6 HOURS PRN IV sbp more than 160 01/23/17 03:15 02/22/17 03:14 Heparin Sodium (Porcine) (Heparin 5000 units/ml) 5,000 units EVERY 12 HOURS SUBQ 01/23/17 09:00 02/22/17 08:59 01/24/17 08:46 Ketorolac Tromethamine (Toradol 30mg) 30 mg Q6HR PRN IV moderate pain ( 4-6) 01/23/17 03:15 01/28/17 03:14 Morphine Sulfate (Morphine Sulfate) 2 mg EVERY 4 HOURS PRN IVP severe Pain (Pain Scale 7-10) 01/23/17 03:15 01/30/17 03:14 01/23/17 22:01 Nitroglycerin (Ntg) 0.4 mg Every 5 Minutes PRN SL Prn Chest Pain 01/23/17 03:15 02/22/17 03:14 Ondansetron HCl (Zofran) 4 mg Q6H PRN IVP Nausea & Vomiting 01/23/17 03:15 02/22/17 03:14 01/24/17 08:44 Polyethylene Glycol (Miralax) 17 gm DAILYPRN PRN ORAL Constipation 01/23/17 03:15 02/22/17 03:14 Temazepam (Restoril) 15 mg HSPRN PRN ORAL Insomnia 01/23/17 03:15 01/30/17 03:14 PERLA LUNA Jan 24, 2017 12:43
--- NOTE | 2017-01-24 15:50 | Diagnostic Imaging Report ---
Indications: Chest pain Technique: Single day single isotope protocol utilized. Initially, resting images obtained using IV administration 11.2 millicuries 99M technetium Myoview. Subsequently, patient underwent there is stress testing. See cardiology report for details. During adenosine infusion, IV administration 30.1 mCi 99 M technetium Myoview. SPECT and planar images obtained. SPECT images gated to 8 phases of the cardiac cycle were also obtained, and reformatted into cine images for evaluation of ejection fraction. Comparison: 11/05/2015 Findings: Per cardiology report, patient experienced chest pain. Per cardiology report, resting EKG demonstrates sinus bradycardia with first degree AV block and nonsignificant ST-T wave abnormality. During infusion, patient developed 1/[address] depression in V4 through V6 and sinus arrhythmia. Imaging demonstrates a questionable fixed perfusion lateral wall, best appreciated on the short axis images. No reversible perfusion defects are demonstrated. Normal cardiac chamber size.. Calculated post stress ejection fraction 63%. No focal wall motion abnormality. Compared to the prior study, the apparent inferolateral fixed abnormality is somewhat more striking Impression: Ischemic clinical response to pharmacologic stress, per cardiology report Nondiagnostic electrocardiographic response to pharmacologic stress, per cardiology report Fixed inferolateral perfusion defect. Suspect on the basis of soft tissue attenuation rather than real. No definite evidence of ischemia, at level of stress achieved Calculated post stress ejection fraction 63%
[2017-01-24 16:00] VITALS: BP 133/65
--- NOTE | 2017-01-24 23:13 | Cardiology Report ---
APPROVED REPORT EKG Measurement Heart [id number] [id number] [id number] Normal sinus rhythm Normal ECG
--- NOTE | 2017-01-25 10:59 | Cardiology Report ---
APPROVED REPORT EXAM: Two-dimensional and M-mode echocardiogram with Doppler and color Doppler. INDICATION Left ventricular function M-Mode DIMENSIONS IVSd1.1 (0.7-1.1cm)Left Atrium (MM)3.6 (1.6-4.0cm) LVDd5.2 (3.5-5.6cm)Aortic Root3.1 (2.0-3.7cm) PWd1.2 (0.7-1.1cm)Aortic Cusp Exc.2.0 (1.5-2.0cm) LVDs3.4 (2.5-4.0cm) PWs1.6 cm Normal left ventricular chamber size, systolic function and wall motion. Left ventricular ejection fraction estimated to be 60-65%. No evidence of left ventricular hypertrophy. No evidence of pericardial fat or effusion. Right cardiac chamber sizes are within normal limits. Mild left atrial enlargement by 2D. Focal aortic valve sclerosis with adequate cusp excursion Thickened mitral valve leaflets with normal excursion. Mitral annulus and aortic root calcification. Pulmonic valve not well visualized. Normal tricuspid valve structure. IVC is normal in size with physiologic collapse. A color flow and spectral Doppler study was performed and revealed: No aortic regurgitation. No mitral regurgitation. Left ventricular diastolic dysfunction grade 1. No tricuspid regurgitation. Tricuspid systolic velocities suggests peak right ventricular systolic pressure of 40 mmHg Consistent with mild pulmonary hypertension.
--- NOTE | 2017-01-25 13:56 | Discharge Summary ---
Discharge Summary Hospital Course Date of Admission Jan 23, 2017 at 01:32 Date of Discharge Jan 24, 2017 at 19:45 Admitting Diagnosis ACUTE CORONARY SYNDROME HPI Susanna Gaitan is a 56 year old female who was admitted on Jan 23, 2017 at 01 :32 for Acute Coronary Syndrome Procedures [id number] Discharge Discharge Disposition Patient was discharged to Home () Discharge Diagnoses: Naz Camarillo NP Jan 25, 2017 13:56
--- NOTE | 2017-01-26 02:09 | Discharge Summary 2 SIG ---
DATE OF ADMISSION: 01/23/2017 DATE OF DISCHARGE: 01/24/2017 CONSULTANTS: 1. Brenton Baca M.D. 2. Chris Spicer M.D. BRIEF HOSPITAL COURSE: The patient is a 56-year-old female with chief complaint of chest pain who presented to ED for on-and-off chest pain that started approximately 2 days ago. Pain radiates to the back and to the left neck. She was admitted for cardiac workup and was seen by Dr. Spicer. Cardiac enzymes were negative. Echocardiogram showed ejection fraction of 60% to 65% with normal left ventricular size, systolic function, and wall motion. She had a perfusion imaging last senior that showed nonischemic response with ejection fraction 49%. EKG showed normal sinus rhythm with no ST-T wave abnormalities. She has shortness of breath and was followed by Dr. Baca. She was given p.r.n. breathing treatments. She underwent an Adenosine nuclear stress test with no definite evidence of ischemia at the level of stress achieved. Calculated pulse ejection fraction was 63%. She was eventually discharged home. FINAL DIAGNOSES: 1. Atypical chest pain. 2. Left hip and leg pain. 3. Obesity. 4. Hypertension. 5. Thyroid nodule. 6. Bradycardia. 7. Osteoarthritis of the left hip. Jason Schmidt M.D. I have been assigned to dictate discharge summary on this account and I was not involved in the patient's management. Naz Camarillo NRyanPRyan DR: YENY JOB#: [id number] CC:
== END 2017-01-24 19:45 | disposition home or self-care (01) | DRG 313 ==
LOC: ENRESERVDT → ENRESERVTM → EMR 23:00 → 2E 01-23 01:32 → EDBEDREQ 01-23 02:15
DX: R07.89 Other chest pain (principal); I10 Essential (primary) hypertension; M79.605 Pain in left leg; E66.9 Obesity, unspecified; M16.12 Unilateral primary osteoarthritis, left hip; E04.1 Nontoxic single thyroid nodule; R00.1 Bradycardia, unspecified; F43.9 Reaction to severe stress, unspecified
CPT/HCPCS: 36415; 71010; 78452; 80048; 80053; 80061; 82550; 82553; 83880; 84443; 84484; 85007; 85025; 85610; 85730; 86140; 93005; 93017; 93306; 94664; J2405

== ENCOUNTER 2017-04-10 07:16 | Inpatient (IN) | payer BC ==
[~2017-04-10] VITALS: Ht 167.6 cm; Wt 108.9 kg
[2017-04-10] VITALS (12 sets, daily range): BP systolic 101–141; BP diastolic 53–81
--- NOTE | 2017-04-10 06:55 | Pre-Procedure Note/Attestation ---
Pre-Procedure Note/Attestation Complete Prior to Procedure Planned Procedure: left Procedure Narrative: left CHRISTIANO Indications for Procedure Pre-Operative Diagnosis: left hip arthritis Attestation I attest that I discussed the nature of the procedure; its benefits; risks and complications; and alternatives (and the risks and benefits of such alternatives ), prior to the procedure, with the patient (or the patient's legal electronics parts sales representative). I attest that, if there was a reasonable possibility of needing a blood transfusion, the patient (or the patient's legal electronics parts sales representative) was given the [facility] standardized written summary, pursuant to the [place] Blood Safety Act ([place] Health and Safety Code # 1645, as amended). I attest that I re-evaluated the patient just prior to the surgery and that there has been no change in the patient's H&P, except as documented below:NONE COURTNEY NEWBY Apr 10, 2017 06:55
[~2017-04-10 07:16] MED LIST changes: +ASPIRIN-LOW81 MG ORAL; +HYDROCODON-ACE1 EA15 ORAL; +ceFAZolin 1gm in D5W 55ml IVP ONE; +celeBREX 200mg Cap **SURGERY PATIENTS ONLY ORAL ONE; +oxyCONTIN 20mg tab ORAL ONE
[2017-04-10] MEDS ORDERED: Morphine Sulfate PF 10 ML ONE (08:04)
[2017-04-10] MEDS ORDERED: Bupivacaine 0.5% Inj 30 ml vial INJ ONE (08:04)
[2017-04-10] MEDS ORDERED: Ropivacaine 5mg/ml Vial 20ml INJ ONE (08:04)
[2017-04-10] MEDS ORDERED: LR 1000ml 1,000 ML IVLG SCH (08:28)
[2017-04-10] MEDS ORDERED: Midazolam 2mg/2ml Inj IVP PRN (08:30)
[2017-04-10] MEDS ORDERED: fentaNYL 100 mcg/2 mL IV PRN (08:30)
[2017-04-10] MEDS ORDERED: Norco 7.5mg/325mg tab ORAL PRN ×2 (08:30→14:00)
[2017-04-10] MEDS ORDERED: Bacitracin 50000 Units Vial ONE (08:30)
[2017-04-10] MEDS ORDERED: Norco 5mg/325mg tab ORAL PRN (08:30)
[2017-04-10] MEDS ORDERED: LORazepam Inj 2mg/ml 1ml IV PRN (08:30)
[2017-04-10] MEDS ORDERED: Meperidine 25mg/0.5ml Inj IV PRN (08:30)
[2017-04-10] MEDS ORDERED: DiphenhydrAMINE 50mg/ml Inj IVP PRN (08:30)
[2017-04-10] MEDS ORDERED: Hydromorphone 0.5mg/0.5ml inj IVP PRN (08:30)
[2017-04-10] MEDS ORDERED: Oxycodone/Acetaminophen 5-325 ORAL PRN (08:30)
[2017-04-10] MEDS ORDERED: Ketorolac 60mg Inj IV PRN (08:30)
[2017-04-10] MEDS ORDERED: Atropine Inj 1mg/10ml Syr IV PRN (08:30)
[2017-04-10] MEDS ORDERED: Ketorolac 30mg Inj IV PRN (08:30)
[2017-04-10] MEDS ORDERED: Metoclopramide 10mg/2ml Inj IVP PRN (08:30)
[2017-04-10] MEDS ORDERED: Alfentanil 2ml Inj ONE (08:45)
[2017-04-10] MEDS ORDERED: Dexamethasone 4mg/ml vial ONE (08:45)
[2017-04-10] MEDS ORDERED: NS Irrig 1000ml ONE (08:45)
[2017-04-10] MEDS ORDERED: Lidocaine 1% MPF 10mg/ml 5ml ONE (08:45)
[2017-04-10] MEDS ORDERED: LR 1000ml ONE (08:45)
[2017-04-10] MEDS ORDERED: Propofol 10mg/ml 20ml IV ONE (08:45)
[2017-04-10] MEDS ORDERED: Sterile Water Irrig 1000ml IRRIG ONE (08:45)
[2017-04-10] MEDS ORDERED: Tranexamic Acid 1,000 MG in NS 55 ML IVPB ONE (09:00)
--- NOTE | 2017-04-10 09:29 | Anethesia Preoperative Eval ---
Anesthesia Pre-op PMH/ROS General Date of Evaluation: Apr 10, 2017 Time of Evaluation: 08:41 Anesthesiologist: Jose ASA Score: ASA 3 Mallampati Score Class I : Soft palate, uvula, fauces, pillars visible Class II: Soft palate, uvula, fauces visible Class III: Soft palate, base of uvula visible Class IV: Only hard plate visible Mallampati Classification: Class III Surgeon: Ward Diagnosis: L Hip Pain Surgical Procedure: L THR Anesthesia History: none Family History: no anesthesia problems Allergies: Coded Allergies: No Known Allergies (Unverified , 06/16/14) Medications: see eMAR Past Medical History Cardiovascular: Reports: HTN Other: obesity - BMI 39 PSxH Narrative: Cholecystectomy Anesthesia Pre-op Phys. Exam Physician Exam Last Vital Signs Date Time Temp Pulse Resp B/P Pulse Ox O2 Delivery O2 Flow Rate FiO2 04/10/17 07:57 97.2 75 18 141/81 98 Room Air Constitutional: NAD Neurologic: CN 2-12 intact Cardiovascular: RRR Respiratory: CTA Gastrointestinal: S/NT/ND Airway Exam Mallampati Score: Class III MO: limited ROM: limited Teeth: intact Anesthesia Pre-op A/P Risk Assessment & Plan Assessment: ASA 3 Plan: GA, Spinal, L Lumbar Plexus Block, BIS Status Change Before Surgery: No Pre-Antibiotics Dru Grams Ancef IV Given Within 1 Hr of Incision: Yes Time Given: 09:06 Jin Garcia MD Apr 10, 2017 09:29
--- NOTE | 2017-04-10 12:04 | Brief Operative Note ---
Immediate Post Operative Note Operative Note Chief Complaint: left hip pain Pre-op Diagnosis: left hip arthritis Procedure: left gulshan Post-op Diagnosis: same as pre-op Findings: consistent w/pre-op dx studies Surgeon: md matthew Belt Glass Sander: betsy barrera Anesthesiologist: md michael Anesthesia: general Specimen: yes Complications: none Condition: stable Estimated Blood Loss: minimal Drains: none Implant(s) used?: Yes - castro and nephew LISA BARRERA Apr 10, 2017 12:04
--- NOTE | 2017-04-10 12:28 | Immediate Post-Op Evaluation ---
Immediate Post-Op Evalulation Immediate Post-Op Evalulation Procedure: L THR Date of Evaluation: Apr 10, 2017 Time of Evaluation: 12:34 IV Fluids: 1200 LR Blood Products: 0 Estimated Blood Loss: 100 Urinary Output: 275 Blood Pressure Systolic: 108 Blood Pressure Diastolic: 66 Pulse Rate: 66 Respiratory Rate: 16 O2 Sat by Pulse Oximetry: 100 Temperature (Fahrenheit): 98.5 Pain Score (1-10): 0 Nausea: No Vomiting: No Complications 0 Patient Status: awake, reacts, patent, extubated, none Hydration Status: adequate Dru Grams Ancef IV Given Within 1 Hr of Incision: Yes Time Given: 09:06 Jin Garcia MD Apr 10, 2017 12:28
[2017-04-10] MEDS ORDERED: HYDROmorphone 1mg/ml Carpuject SUBQ PRN (14:00)
[2017-04-10] MEDS ORDERED: Milk of Magnesia 30ml Ud ORAL PRN (14:00)
[2017-04-10] MEDS: D5 1/2NS w/KCl 20mEq 1,000 ML IV SCH (16:05)
--- NOTE | 2017-04-10 16:48 | History & Physical ---
History and Physical History & Physicial Dictated for Int Med-Dr Schmidt no. [id number]. MAYRA OVERTON Apr 10, 2017 16:48
[2017-04-10] MEDS: ceFAZolin sod 2 GM in D5W 110 ML IV SCH (17:45)
[2017-04-10] MEDS: Docusate 100mg cap ORAL SCH (17:45)
--- NOTE | 2017-04-10 18:05 | Diagnostic Imaging Report ---
Indication: Intraoperative Technique: One view of the pelvis Comparison: Findings: Intraoperative images are severely limited by patient body habitus. There is a left acetabular cup the left femoral broach in the appropriate position Impression: Intraoperative imaging, as described
--- NOTE | 2017-04-10 18:30 | Operative Note - Dictated ---
DATE OF OPERATION: 04/10/2017 PREOPERATIVE DIAGNOSIS: Left hip end-stage arthritis. POSTOPERATIVE DIAGNOSIS: Left hip end-stage arthritis. PROCEDURE: Left total hip arthroplasty using Boyer and Nephew system, R3 52 mm cup with two dome screws, size 4 anthology standard offset stem, 36 mm +0 Oxinium head, with ultra cross-linked polyethylene insert with a 20-degree lip. SURGEON: Michael Hopper M.D. CONCRETE PRODUCTS DISPATCHER: Amanda Galo PA-C. ANESTHESIOLOGIST: Jin Garcia M.D. ANESTHESIA: Combined with plexus block. ESTIMATED BLOOD LOSS: Less than 150 mL. COMPLICATIONS: None. BRIEF HISTORY: The patient is a very pleasant 56-year-old female, who has got bilateral severe end-stage arthritis of the hip. She was essentially nonambulatory because of her severe hip pain. She failed all nonoperative treatment and after full discussion of risks and benefits of the surgery and complications associated with it including infection, bleeding, neurovascular complication, possibility of dislocation, leg length discrepancy, DVT, PEs, infection requiring resection arthroplasty, other complications that may arise outlined, she opted for surgical treatment as described above. OPERATIVE PROCEDURE: The patient was brought to the operating table and was placed supine. All pressure points well padded. Plexus block was performed by anesthesiologist. General LMA anesthesia was induced. The patient was stabilized using pegboard. All pressure points were well padded. Left hip was prepped and draped in the usual sterile fashion. Time-out was performed. Preoperative antibiotics were given and the patient received tranexamic acid 1 g preoperatively. A posterolateral incision on the hip was made. Incision was taken through subcutaneous tissue and fascia was opened. The retractors were placed in. Short external rotators were all released and the capsule was T'd and capsule and piriformis were tagged with #2 FiberWire suture for layer repair through drill holes in the greater trochanter. At this point, the hip was dislocated. There was extensive arthritic changes about the femoral head. Femoral neck cut was performed without any complications. Once this was completed, the anterior acetabular retractors were placed in and various retractors were placed around the acetabulum to get a good exposure acetabulum. The labrum was resected. There was extensive arthritic changes of the acetabulum. At this point, sequential reaming was performed with a 45 millimeter reamers to start to take out the medial osteophyte. Subsequently sequential reaming was performed all the way up to 52 mm reamer. Approximately 40 degrees anteversion and 45 degrees inclination was used. Once this was completed, trialing was performed and 52 mm appeared to be the right size. At this point, acetabulum was thoroughly irrigated using copious amount of fluid and using R3 cup, the actual acetabulum cup was seated with 40 degrees of anteversion and 45 degrees inclination. It was assured that the acetabular cup is well seated. At this point, two 25 mm dome screws were placed for additional stability. This provided excellent stability acetabular cup with good positioning. At this point, a ultra cross-linked poly with 20 degree lip was then placed without any complications. Once this was completed, care was given to the femur. At this point, the femoral component was exposed using a drink box mechanic. The entry point was lateralized. A canal finder was placed and sequential broaching was performed. Broaching was performed all the way up to size 4. Size 5 was too big and it would not go down. It was assured that the entry point was lateralized. Once this was completed, the trialing was performed. A 36 mm head with +0 appeared to be the right size judging from the kneecap as well as medial malleolus and leg length. The leg lengths were equal. Gluteal tension was checked and appeared to be perfect. Range of motion was checked and there was full extension, full flexion, and excellent stability at 0 degrees, 30 degrees, 45 degrees, 90 degrees with neutral adduction all the way up to 70 to 80 degrees internal rotation. Anterior stability was checked and appeared to be perfect. At this point, wounds were thoroughly irrigated using copious amount of fluid. Intraoperative x-rays were obtained although because of the size of the patient it was limited, however, the stem could be seen that is well seated and hence fill the canal. The cup appeared to be in good position. At this point, the trial broach was removed and canal was thoroughly irrigated using Simpulse irrigation. Once this was completed, size 4 ANTHOLOGY stem was seated without any complications. This provided excellent axial and rotational stability. At this point, trialing was performed and again zero size length appeared to be the right size. Therefore, the Roberson taper was dried on Oxinium 36 mm head with +0 length was then locked onto the Roberson taper without any complications. There was excellent stability and this was checked and rechecked. It was assured that the Roberson taper was dried prior to locking the head onto the neck. Once this was completed, the entire construct was then reduced. Leg length, range of motion, tension and stability was checked and appeared to be perfect as described previously. All wounds were thoroughly irrigated using copious amount of fluid. Drill holes were made into the trochanter and short external rotators were tied onto the greater trochanter using drill holes and #2 FiberWire sutures. Subcutaneous tissue was thoroughly irrigated. The fascia was closed using #1 Vicryl suture. Subcutaneous tissue was closed in a layered fashion using 2-0 Vicryl suture and then skin was closed using 3-0 Monocryl suture and Dermabond was applied. Sterile dressing was applied. An abduction pillow was placed and the patient was placed on the bed. Intraoperative x-rays were obtained, alignment and prosthesis are in good placement. The patient tolerated the procedure well without any complications and taken to recovery in stable condition. Michael Hopper M.D. DR: Nyla JOB#: [id number] CC:
[2017-04-10] MEDS: oxyCONTIN 20mg tab ORAL SCH (21:00)
--- NOTE | 2017-04-11 | History and Physical Report ---
DATE OF ADMISSION: 04/10/2017 CHIEF COMPLAINT: The patient is a 56-year-old female, presents with chief complaint of left hip osteoarthritis. HISTORY OF PRESENT ILLNESS: The patient was admitted to [facility] in January 2017. Please see history and physical and discharge summary dictated at that time. The patient has a history of osteoarthritis of the left hip. The patient is admitted for total left hip arthroplasty to be done by Dr. Hopper. The patient is currently status post left total hip arthroplasty, today 04/10/2017. PAST MEDICAL HISTORY: Significant for 1. Hypertension. 2. Osteoarthritis of bilateral hips. PAST SURGICAL HISTORY: The patient denies other than total left hip arthroplasty on 04/10/2017. CURRENT MEDICATIONS: 1. Amlodipine 10 mg one tablet p.o. daily. 2. Aspirin 81 mg one tablet p.o. daily. 3. Ibuprofen 600 mg one tablet p.o. q.8 h. p.r.n. ALLERGIES: No known drug allergies. SOCIAL HISTORY: The patient is and works as a certified nurse television production assistant. The patient is currently on disability secondary to osteoarthritis of the hips. The patient denies tobacco use. The patient has occasional alcohol use. FAMILY HISTORY: Significant for diabetes in the patient's mother. Family history negative for coronary artery disease. REVIEW OF SYSTEMS: Constitutional: The patient denies weight loss or weight gain. The patient denies fevers or chills. HEENT: The patient denies ear or throat pain. The patient denies headache. Cardiovascular: The patient denies palpitations or chest pain. Chest: The patient denies wheeze or shortness of breath. Abdomen: The patient denies nausea, vomiting, or constipation. Genitourinary: The patient denies dysuria or increased frequency of urination. Neuromuscular: The patient complains of left hip pain as above. The patient denies seizures or generalized weakness. PHYSICAL EXAMINATION: VITAL SIGNS: Temperature 97.6 degrees, respiration 19, pulse 67, and blood pressure 120/63. GENERAL: The patient is a well-developed and well-nourished female, in no apparent distress. HEENT: Eyes, pupils are equal and responsive to light and accommodation. Extraocular movements are intact. NECK: Supple. No lymphadenopathy. CHEST: Lungs are clear to auscultation bilaterally without wheezes or rales. CARDIOVASCULAR: Regular rate. S1 and S2. No murmurs, rubs, or gallops. ABDOMEN: Soft, nontender, and nondistended. Positive bowel sounds. No evidence of hepatosplenomegaly. Currently, no rebound or guarding noted. EXTREMITIES: Negative for clubbing, cyanosis, or edema. RECTAL AND GENITAL: Refused. NEUROLOGICAL: Cranial nerves II through XII are grossly intact without focal deficits. Motor strength is 5/5 bilaterally intact. Deep tendon reflexes 2+ plantar. LABORATORY AND DIAGNOSTIC DATA: Laboratory studies are pending. ASSESSMENT: This is a 56-year-old female 1. Osteoarthritis of left hip. 2. Hypertension. 3. Left hip pain. TREATMENT: 1. Left hip pain/osteoarthritis left hip. The patient is status post left hip total arthroplasty. This is performed by Dr. Hopper today, 04/10/2017. We will follow recommendation of Surgery. Physical therapy and occupational therapy evaluation is pending. 2. Hypertension. Continue amlodipine as above. Frederick Lopez M.D. DR: ZAIDA JOB#: [id number] CC:
[2017-04-11] MEDS: ceFAZolin sod 2 GM in D5W 110 ML IV SCH (00:11)
[2017-04-11 00:27] VITALS: BP 99/61
[2017-04-11 04:00] VITALS: BP 126/68
[2017-04-11] MEDS: D5 1/2NS w/KCl 20mEq 1,000 ML IV SCH ×2 (05:37→17:40)
[2017-04-11 06:18] LABS: BASOPHILS % (AUTO) 0.3 % (0.0-2.0); MEAN CORPUSCULAR HGB CONC 33.3 G/DL (32.0-36.0); MEAN CORPUSCULAR VOLUME 96 FL (80-99); MEAN PLATELET VOLUME 7.5 FL (6.5-10.1); MONOCYTES % (AUTO) 8.8 % (1.0-10.0); NEUTROPHILS % (AUTO) 82.9 % (45.0-75.0); PLATELET COUNT 177 K/UL (150-450); RED BLOOD COUNT 3.21 M/UL (4.20-5.40); RED CELL DISTRIBUTION WIDTH 12.1 % (11.6-14.8); WHITE BLOOD COUNT 6.3 K/UL (4.8-10.8)
[2017-04-11 06:24] LABS: ANION GAP 15 (5-15); CARBON DIOXIDE 24 mEQ/L (20-30); CHLORIDE 95 mEQ/L (98-107); CREATININE 0.8 mg/dL (0.5-0.9); GLOMERULAR FILTRATION RATE > 60 mL/min (>60); HEMOLYSIS 6; POTASSIUM 4.6 mEQ/L (3.4-4.9); SODIUM 134 mEQ/L (135-145)
[2017-04-11 08:15] VITALS: BP 108/51
--- NOTE | 2017-04-11 08:17 | Orthopedic Progress Note ---
Orthopedic - Progress Note Subjective Symptoms: improved Objective Vital Signs Laboratory Tests Test 04/11/17 05:20 White Blood Count 6.3 K/UL (4.8-10.8) Red Blood Count 3.21 M/UL (4.20-5.40) L Hemoglobin 10.3 G/DL (12.0-16.0) L Hematocrit 30.8 % (37.0-47.0) L Mean Corpuscular Volume 96 FL (80-99) Mean Corpuscular Hemoglobin 32.0 PG (27.0-31.0) H Mean Corpuscular Hemoglobin Concent 33.3 G/DL (32.0-36.0) Red Cell Distribution Width 12.1 % (11.6-14.8) Platelet Count 177 K/UL (150-450) Mean Platelet Volume 7.5 FL (6.5-10.1) Neutrophils (%) (Auto) 82.9 % (45.0-75.0) H Lymphocytes (%) (Auto) 8.0 % (20.0-45.0) L Monocytes (%) (Auto) 8.8 % (1.0-10.0) Eosinophils (%) (Auto) 0.0 % (0.0-3.0) Basophils (%) (Auto) 0.3 % (0.0-2.0) Sodium Level 134 mEQ/L (135-145) L Potassium Level 4.6 mEQ/L (3.4-4.9) Chloride Level 95 mEQ/L (98-107) L Carbon Dioxide Level 24 mEQ/L (20-30) Anion Gap 15 (5-15) Blood Urea Nitrogen 17 mg/dL (7-23) Creatinine 0.8 mg/dL (0.5-0.9) Estimat Glomerular Filtration Rate > 60 mL/min (>60) Glucose Level 146 mg/dL (74-106) H Calcium Level 9.0 mg/dL (8.6-10.2) Last 24 Hour Vital Signs Date Time Temp Pulse Resp B/P Pulse Ox O2 Delivery O2 Flow Rate FiO2 04/11/17 08:15 96.4 65 21 108/51 97 Room Air 04/11/17 04:00 97.0 60 19 126/68 97 Room Air 04/11/17 00:27 96.3 67 18 99/61 96 Room Air 04/10/17 20:00 97.9 71 18 101/57 95 Room Air 04/10/17 16:00 96.6 72 18 117/63 98 Room Air 04/10/17 15:00 97.9 59 16 114/64 97 Room Air 04/10/17 13:45 97.6 79 16 117/55 100 Room Air 04/10/17 13:26 68 22 118/61 97 Room Air 04/10/17 13:15 97.6 67 19 120/63 97 Room Air 04/10/17 13:00 65 20 111/60 99 Room Air 04/10/17 12:45 67 24 113/58 100 Room Air 04/10/17 12:35 64 21 110/60 100 Simple Mask 6.0 04/10/17 12:30 61 16 108/53 100 Simple Mask 6.0 04/10/17 12:28 66 16 100 04/10/17 12:23 98.6 66 14 108/56 100 Simple Mask 6.0 I&O Intake and Output 04/10/17 04/11/17 19:00 07:00 Intake Total 1565 ml 1185 ml Output Total 875 ml 450 ml Balance 690 ml 735 ml Intake Oral 360 ml IV Total 1565 ml 825 ml Output Urine Total 775 ml 450 ml Estimated Blood Loss 100 ml # Voids 1 1 Wound: clean, dry, intact Drains: none Neuro Status: normal Vascular Status: normal Assessment Post-op Diagnosis POD 1 Procedure Performed left gulshan Plan Plan: PT, discharge plan - pt would like to go home if doing well. plan for home with services and DME or Sunday LISA BLOCK Apr 11, 2017 08:17
[2017-04-11] MEDS: celeBREX 200mg Cap **SURGERY PATIENTS ONLY ORAL SCH ×2 (09:00→09:33)
[2017-04-11] MEDS: Docusate 100mg cap ORAL SCH ×3 (09:32→18:27)
[2017-04-11] MEDS: Enoxaparin 40mg Inj SUBQ SCH (09:32)
[2017-04-11] MEDS: oxyCONTIN 20mg tab ORAL SCH ×2 (09:34→21:08)
--- NOTE | 2017-04-11 10:47 | Internal Med Progress Note ---
Subjective Date of Service: Apr 11, 2017 Physician Name OvertonFrederick Attending Physician Michael Hopper Current Medications Medications (Trade) Dose Ordered Sig/Mariposa Route PRN Reason Start Time Stop Time Status Last Admin Dose Admin Acetaminophen (Tylenol) 650 mg Q4H PRN ORAL Mild Pain (Pain Scale 1-3) 04/10/17 14:00 05/10/17 13:59 Acetaminophen (Tylenol) 650 mg Q4H PRN ORAL temp>100 04/10/17 14:00 05/10/17 13:59 Acetaminophen/ Hydrocodone Bitart ([place]au 5/325) 2 tab Q6H PRN ORAL Severe Pain (Pain Scale 7-10) 04/10/17 14:00 04/17/17 13:59 Acetaminophen/ Hydrocodone Bitart ([place] 7.5/325) 1 ea Q4H PRN ORAL Moderate Pain (Pain Scale 4-6) 04/10/17 14:00 04/17/17 13:59 Celecoxib (CeleBREX) 200 mg DAILY ORAL 04/11/17 09:00 05/11/17 08:59 Dextrose/ Electrolytes (D5 0.45%NS W/ KCl 20mEq) 1,000 ml @ 75 mls/hr [id number] IV 04/10/17 15:00 05/10/17 14:59 04/11/17 05:37 Docusate Sodium (Colace) 100 mg THREE TIMES A DAY ORAL 04/10/17 18:00 05/10/17 17:59 04/11/17 09:32 Enoxaparin Sodium (Lovenox) 40 mg DAILY SUBQ 04/11/17 09:00 04/21/17 08:59 04/11/17 09:32 Ferrous Sulfate (Feosol) 325 mg THREE TIMES A DAY ORAL 04/10/17 18:00 05/10/17 17:59 04/11/17 09:34 Hydromorphone HCl (Dilaudid) 1 mg Q4H PRN SUBQ Mild Pain (Pain Scale 1-3) 04/10/17 14:00 04/17/17 13:59 Hydromorphone HCl (Dilaudid) 2 mg Q3H PRN SUBQ Severe Pain (Pain Scale 7-10) 04/10/17 14:00 04/17/17 13:59 04/10/17 20:12 Hydromorphone HCl (Dilaudid) 2 mg Q4H PRN SUBQ Moderate Pain (Pain Scale 4-6) 04/10/17 14:00 04/17/17 13:59 Magnesium Hydroxide (Mom) 30 ml DAILYPRN PRN ORAL Constipation 04/10/17 14:00 05/10/17 13:59 Oxycodone HCl (OxyCONTIN) 20 mg EVERY 12 HOURS ORAL 04/10/17 21:00 04/17/17 20:59 04/11/17 09:34 Prochlorperazine (Compazine) 10 mg Q6H PRN IVP Nausea & Vomiting 04/10/17 14:00 05/10/17 13:59 04/10/17 20:09 Temazepam (Restoril) 15 mg HSPRN PRN ORAL Insomnia 04/10/17 20:00 04/17/17 19:59 Allergies: Coded Allergies: No Known Allergies (Unverified , 06/16/14) ROS Limited/Unobtainable: No Constitutional: Reports: no symptoms HEENT: Reports: no symptoms Cardiovascular: Reports: no symptoms Respiratory: Reports: no symptoms Gastrointestinal/Abdominal: Reports: no symptoms Genitourinary: Reports: no symptoms Neurologic/Psychiatric: Reports: no symptoms Subjective 56 YO F admitted for left hip osteoarthritis. S/P total left hip arthroplasty on 04/10/17. Objective Last Vital Signs Date Time Temp Pulse Resp B/P Pulse Ox O2 Delivery O2 Flow Rate FiO2 04/11/17 08:15 96.4 65 21 108/51 97 Room Air 04/10/17 12:35 6.0 Laboratory Tests Test 04/11/17 05:20 White Blood Count 6.3 K/UL (4.8-10.8) Red Blood Count 3.21 M/UL (4.20-5.40) L Hemoglobin 10.3 G/DL (12.0-16.0) L Hematocrit 30.8 % (37.0-47.0) L Mean Corpuscular Volume 96 FL (80-99) Mean Corpuscular Hemoglobin 32.0 PG (27.0-31.0) H Mean Corpuscular Hemoglobin Concent 33.3 G/DL (32.0-36.0) Red Cell Distribution Width 12.1 % (11.6-14.8) Platelet Count 177 K/UL (150-450) Mean Platelet Volume 7.5 FL (6.5-10.1) Neutrophils (%) (Auto) 82.9 % (45.0-75.0) H Lymphocytes (%) (Auto) 8.0 % (20.0-45.0) L Monocytes (%) (Auto) 8.8 % (1.0-10.0) Eosinophils (%) (Auto) 0.0 % (0.0-3.0) Basophils (%) (Auto) 0.3 % (0.0-2.0) Sodium Level 134 mEQ/L (135-145) L Potassium Level 4.6 mEQ/L (3.4-4.9) Chloride Level 95 mEQ/L (98-107) L Carbon Dioxide Level 24 mEQ/L (20-30) Anion Gap 15 (5-15) Blood Urea Nitrogen 17 mg/dL (7-23) Creatinine 0.8 mg/dL (0.5-0.9) Estimat Glomerular Filtration Rate > 60 mL/min (>60) Glucose Level 146 mg/dL (74-106) H Calcium Level 9.0 mg/dL (8.6-10.2) Intake and Output 04/10/17 04/11/17 19:00 07:00 Intake Total 1565 ml 1185 ml Output Total 875 ml 450 ml Balance 690 ml 735 ml Intake Oral 360 ml IV Total 1565 ml 825 ml Output Urine Total 775 ml 450 ml Estimated Blood Loss 100 ml # Voids 1 1 Objective General: alert, cooperative, no distress, appears stated age Head: normocephalic, without obvious abnormality, atraumatic Eyes: conjunctivae/corneas clear. PERRL, EOM's intact Throat: lips, mucosa, and tongue normal. MMM Neck: supple, symmetrical, trachea midline, and no JVD Lungs: clear to auscultation bilaterally Heart: regular rate and rhythm, S1, S2 normal, no murmur, click, rub or gallop Abdomen: soft, non-tender, non-distended, bowel sounds normal; no masses or organomegaly Extremities: extremities normal, atraumatic, no cyanosis or edema Pulses: 2+ and symmetric Skin: skin color, texture, turgor normal; no rashes or lesions Neurologic: grossly normal, no focal deficits Assessment/Plan Problem List: (1) Osteoarthritis of left hip Assessment & Plan: S/P total left hip arthroplasty on 04/10/17. See ortho note (2) HTN (hypertension) Assessment & Plan: stable off meds. Assessment/Plan Discharge planning. FREDERICK OVERTON Apr 11, 2017 10:47
--- NOTE | 2017-04-11 12:10 | 48 Hour Post Anesthesia Eval ---
Post Anesthesia Evaluation Procedure: L THR Date of Evaluation: Apr 11, 2017 Time of Evaluation: 06:45 Blood Pressure Systolic: 126 0: 68 Pulse Rate: 60 Respiratory Rate: 19 Temperature (Fahrenheit): 97 O2 Sat by Pulse Oximetry: 97 Airway: patent Nausea: No Vomiting: No Pain Intensity: 2 Hydration Status: adequate Cardiopulmonary Status: at baseline Mental Status/LOC: patient returned to baseline Post-Anesthesia Complications: 0 Follow-up care needed: N/A - further care as per primary team SRAVANI MORAN M.D. Apr 11, 2017 12:10
[2017-04-11 12:31] VITALS: BP 107/55
[2017-04-11 16:05] VITALS: BP 111/57
[2017-04-11] MEDS: Norco 5mg/325mg tab ORAL PRN (18:28)
[2017-04-11 20:00] VITALS: BP 130/69
[2017-04-12] MEDS: Norco 5mg/325mg tab ORAL PRN ×3 (00:28→22:30)
[2017-04-12 04:00] VITALS: BP 111/53
[2017-04-12 07:41] LABS: ANION GAP 12 (5-15); CALCIUM 8.7 mg/dL (8.6-10.2); CARBON DIOXIDE 28 mEQ/L (20-30); CHLORIDE 100 mEQ/L (98-107); CREATININE 0.7 mg/dL (0.5-0.9); GLOMERULAR FILTRATION RATE > 60 mL/min (>60); HEMOLYSIS 3; POTASSIUM 4.4 mEQ/L (3.4-4.9); SODIUM 140 mEQ/L (135-145)
[2017-04-12 07:53] VITALS: BP 110/59
--- NOTE | 2017-04-12 07:55 | Orthopedic Progress Note ---
Orthopedic - Progress Note Subjective Symptoms: c/o post-op hip pain Additional Comments Doing very well. Less pain. Objective Vital Signs Last 24 Hour Vital Signs Date Time Temp Pulse Resp B/P Pulse Ox O2 Delivery O2 Flow Rate FiO2 04/12/17 04:00 97.9 56 18 111/53 98 Room Air 04/11/17 20:00 97.9 69 18 130/69 96 Room Air 04/11/17 16:05 97.5 66 21 111/57 99 Room Air 04/11/17 12:31 97.6 64 20 107/55 99 Room Air 04/11/17 12:10 60 19 97 04/11/17 08:15 96.4 65 21 108/51 97 Room Air I&O Intake and Output 04/11/17 04/12/17 19:00 07:00 Intake Total 1545 ml 240 ml Output Total 450 ml Balance 1095 ml 240 ml Intake Oral 1245 ml 240 ml IV Total 300 ml Output Urine Total 450 ml # Voids 3 1 Wound: clean, dry Drains: none Neuro Status: normal Vascular Status: normal Assessment Post-op Diagnosis s/p CHRISTIANO post op day 2 Plan Plan: PT, pain management, discharge to home Additional Comments Dressing changes check labs Follow up with me in 2 weeks COURTNEY NEWBY Apr 12, 2017 07:55
[2017-04-12 07:58] LABS: BASOPHILS % (AUTO) 0.4 % (0.0-2.0); EOSINOPHILS % (AUTO) 1.2 % (0.0-3.0); LYMPHOCYTES % (AUTO) 20.6 % (20.0-45.0); MEAN CORPUSCULAR HEMOGLOBIN 33.5 PG (27.0-31.0); MEAN CORPUSCULAR HGB CONC 34.1 G/DL (32.0-36.0); MEAN CORPUSCULAR VOLUME 98 FL (80-99); MEAN PLATELET VOLUME 8.1 FL (6.5-10.1); NEUTROPHILS % (AUTO) 69.8 % (45.0-75.0); PLATELET COUNT 180 K/UL (150-450); RED BLOOD COUNT 3.03 M/UL (4.20-5.40); RED CELL DISTRIBUTION WIDTH 12.5 % (11.6-14.8); WHITE BLOOD COUNT 5.7 K/UL (4.8-10.8)
[2017-04-12] MEDS: celeBREX 200mg Cap **SURGERY PATIENTS ONLY ORAL SCH ×2 (08:07→08:32)
[2017-04-12] MEDS: Docusate 100mg cap ORAL SCH ×3 (08:07→17:39)
[2017-04-12] MEDS: oxyCONTIN 20mg tab ORAL SCH ×2 (08:07→20:00)
[2017-04-12] MEDS: Enoxaparin 40mg Inj SUBQ SCH (08:15)
[2017-04-12 12:01] VITALS: BP 139/70
--- NOTE | 2017-04-12 15:47 | Internal Med Progress Note ---
Subjective Date of Service: Apr 12, 2017 Physician Name Mayra Overton Attending Physician Michael Hopper Current Medications Medications (Trade) Dose Ordered Sig/Mariposa Route PRN Reason Start Time Stop Time Status Last Admin Dose Admin Acetaminophen (Tylenol) 650 mg Q4H PRN ORAL Mild Pain (Pain Scale 1-3) 04/10/17 14:00 05/10/17 13:59 Acetaminophen (Tylenol) 650 mg Q4H PRN ORAL temp>100 04/10/17 14:00 05/10/17 13:59 Acetaminophen/ Hydrocodone Bitart (Mckinney 5/325) 2 tab Q6H PRN ORAL Severe Pain (Pain Scale 7-10) 04/10/17 14:00 04/17/17 13:59 04/12/17 13:50 Acetaminophen/ Hydrocodone Bitart (Mckin[place] 7.5/325) 1 ea Q4H PRN ORAL Moderate Pain (Pain Scale 4-6) 04/10/17 14:00 04/17/17 13:59 Diphenhydramine HCl (Benadryl) 50 mg EVERY 8 HOURS PRN ORAL Itching 04/11/17 23:15 05/11/17 23:14 04/12/17 00:25 Docusate Sodium (Colace) 100 mg THREE TIMES A DAY ORAL 04/10/17 18:00 05/10/17 17:59 04/12/17 13:32 Enoxaparin Sodium (Lovenox) 40 mg DAILY SUBQ 04/11/17 09:00 04/21/17 08:59 04/12/17 08:15 Ferrous Sulfate (Feosol) 325 mg THREE TIMES A DAY ORAL 04/10/17 18:00 05/10/17 17:59 04/12/17 13:32 Hydromorphone HCl (Dilaudid) 1 mg Q4H PRN SUBQ Mild Pain (Pain Scale 1-3) 04/10/17 14:00 04/17/17 13:59 Hydromorphone HCl (Dilaudid) 2 mg Q3H PRN SUBQ Severe Pain (Pain Scale 7-10) 04/10/17 14:00 04/17/17 13:59 04/10/17 20:12 Hydromorphone HCl (Dilaudid) 2 mg Q4H PRN SUBQ Moderate Pain (Pain Scale 4-6) 04/10/17 14:00 04/17/17 13:59 Magnesium Hydroxide (Mom) 30 ml DAILYPRN PRN ORAL Constipation 04/10/17 14:00 05/10/17 13:59 Oxycodone HCl (OxyCONTIN) 20 mg EVERY 12 HOURS ORAL 04/10/17 21:00 04/17/17 20:59 04/12/17 08:07 Prochlorperazine (Compazine) 10 mg Q6H PRN IVP Nausea & Vomiting 04/10/17 14:00 05/10/17 13:59 04/10/17 20:09 Temazepam (Restoril) 15 mg HSPRN PRN ORAL Insomnia 04/10/17 20:00 04/17/17 19:59 Allergies: Coded Allergies: CELECOXIB (Verified Allergy, Mild, numbness, 04/12/17) stated by patient. her body start feeling numb. ROS Limited/Unobtainable: No Constitutional: Reports: no symptoms HEENT: Reports: no symptoms Cardiovascular: Reports: no symptoms Respiratory: Reports: no symptoms Gastrointestinal/Abdominal: Reports: no symptoms Genitourinary: Reports: no symptoms Neurologic/Psychiatric: Reports: no symptoms Subjective 56 YO F admitted for left hip osteoarthritis. S/P total left hip arthroplasty on 04/10/17. Cover for [facility]. Ambulates with walker. Objective Last Vital Signs Date Time Temp Pulse Resp B/P Pulse Ox O2 Delivery O2 Flow Rate FiO2 04/12/17 14:49 97.9 04/12/17 12:01 72 20 139/70 97 Room Air 04/10/17 12:35 6.0 Laboratory Tests Test 04/12/17 06:35 White Blood Count 5.7 K/UL (4.8-10.8) Red Blood Count 3.03 M/UL (4.20-5.40) L Hemoglobin 10.1 G/DL (12.0-16.0) L Hematocrit 29.7 % (37.0-47.0) L Mean Corpuscular Volume 98 FL (80-99) Mean Corpuscular Hemoglobin 33.5 PG (27.0-31.0) H Mean Corpuscular Hemoglobin Concent 34.1 G/DL (32.0-36.0) Red Cell Distribution Width 12.5 % (11.6-14.8) Platelet Count 180 K/UL (150-450) Mean Platelet Volume 8.1 FL (6.5-10.1) Neutrophils (%) (Auto) 69.8 % (45.0-75.0) Lymphocytes (%) (Auto) 20.6 % (20.0-45.0) Monocytes (%) (Auto) 8.0 % (1.0-10.0) Eosinophils (%) (Auto) 1.2 % (0.0-3.0) Basophils (%) (Auto) 0.4 % (0.0-2.0) Sodium Level 140 mEQ/L (135-145) Potassium Level 4.4 mEQ/L (3.4-4.9) Chloride Level 100 mEQ/L (98-107) Carbon Dioxide Level 28 mEQ/L (20-30) Anion Gap 12 (5-15) Blood Urea Nitrogen 19 mg/dL (7-23) Creatinine 0.7 mg/dL (0.5-0.9) Estimat Glomerular Filtration Rate > 60 mL/min (>60) Glucose Level 106 mg/dL (74-106) Calcium Level 8.7 mg/dL (8.6-10.2) Microbiology Date/Time Source Procedure Growth Status 04/10/17 07:50 Nasal Nares MRSA Culture - Final NO METHICILLIN RESISTANT STAPH AUREUS... Complete Intake and Output 04/11/17 04/12/17 19:00 07:00 Intake Total 1545 ml 240 ml Output Total 450 ml Balance 1095 ml 240 ml Intake Oral 1245 ml 240 ml IV Total 300 ml Output Urine Total 450 ml # Voids 3 1 Objective General: alert, cooperative, no distress, appears stated age Head: normocephalic, without obvious abnormality, atraumatic Eyes: conjunctivae/corneas clear. PERRL, EOM's intact Throat: lips, mucosa, and tongue normal. MMM Neck: supple, symmetrical, trachea midline, and no JVD Lungs: clear to auscultation bilaterally Heart: regular rate and rhythm, S1, S2 normal, no murmur, click, rub or gallop Abdomen: soft, non-tender, non-distended, bowel sounds normal; no masses or organomegaly Extremities: extremities normal, atraumatic, no cyanosis or edema Pulses: 2+ and symmetric Skin: skin color, texture, turgor normal; no rashes or lesions Neurologic: grossly normal, no focal deficits Assessment/Plan Problem List: (1) Osteoarthritis of left hip Assessment & Plan: S/P total left hip arthroplasty on 04/10/17. See ortho note (2) HTN (hypertension) Assessment & Plan: stable off meds. Status: stable, tolerating diet, ambulating well Assessment/Plan Discharge planning 04/13/17: Home with home health and home physical therapy MAYRA OVERTON Apr 12, 2017 15:47
[2017-04-12 16:07] VITALS: BP 139/74
[2017-04-12 20:00] VITALS: BP 132/63
[2017-04-13 04:00] VITALS: BP 145/70
[2017-04-13 06:33] LABS: BASOPHILS % (AUTO) 0.6 % (0.0-2.0); EOSINOPHILS % (AUTO) 1.5 % (0.0-3.0); LYMPHOCYTES % (AUTO) 21.4 % (20.0-45.0); MEAN CORPUSCULAR HEMOGLOBIN 32.8 PG (27.0-31.0); MEAN CORPUSCULAR HGB CONC 33.6 G/DL (32.0-36.0); MEAN CORPUSCULAR VOLUME 98 FL (80-99); MEAN PLATELET VOLUME 7.8 FL (6.5-10.1); MONOCYTES % (AUTO) 9.7 % (1.0-10.0); NEUTROPHILS % (AUTO) 66.8 % (45.0-75.0); PLATELET COUNT 177 K/UL (150-450); RED BLOOD COUNT 3.04 M/UL (4.20-5.40); RED CELL DISTRIBUTION WIDTH 12.3 % (11.6-14.8); WHITE BLOOD COUNT 5.5 K/UL (4.8-10.8)
[2017-04-13 06:51] LABS: ANION GAP 12 (5-15); CALCIUM 8.8 mg/dL (8.6-10.2); CARBON DIOXIDE 28 mEQ/L (20-30); CHLORIDE 98 mEQ/L (98-107); CREATININE 0.7 mg/dL (0.5-0.9); GLOMERULAR FILTRATION RATE > 60 mL/min (>60); HEMOLYSIS 1; POTASSIUM 3.8 mEQ/L (3.4-4.9); SODIUM 138 mEQ/L (135-145)
[2017-04-13 08:00] VITALS: BP 147/79
--- NOTE | 2017-04-13 08:21 | Orthopedic Progress Note ---
Orthopedic - Progress Note Subjective Symptoms: c/o post-op hip pain Objective Vital Signs Laboratory Tests Test 04/13/17 05:15 White Blood Count 5.5 K/UL (4.8-10.8) Red Blood Count 3.04 M/UL (4.20-5.40) L Hemoglobin 10.0 G/DL (12.0-16.0) L Hematocrit 29.7 % (37.0-47.0) L Mean Corpuscular Volume 98 FL (80-99) Mean Corpuscular Hemoglobin 32.8 PG (27.0-31.0) H Mean Corpuscular Hemoglobin Concent 33.6 G/DL (32.0-36.0) Red Cell Distribution Width 12.3 % (11.6-14.8) Platelet Count 177 K/UL (150-450) Mean Platelet Volume 7.8 FL (6.5-10.1) Neutrophils (%) (Auto) 66.8 % (45.0-75.0) Lymphocytes (%) (Auto) 21.4 % (20.0-45.0) Monocytes (%) (Auto) 9.7 % (1.0-10.0) Eosinophils (%) (Auto) 1.5 % (0.0-3.0) Basophils (%) (Auto) 0.6 % (0.0-2.0) Sodium Level 138 mEQ/L (135-145) Potassium Level 3.8 mEQ/L (3.4-4.9) Chloride Level 98 mEQ/L (98-107) Carbon Dioxide Level 28 mEQ/L (20-30) Anion Gap 12 (5-15) Blood Urea Nitrogen 14 mg/dL (7-23) Creatinine 0.7 mg/dL (0.5-0.9) Estimat Glomerular Filtration Rate > 60 mL/min (>60) Glucose Level 112 mg/dL (74-106) H Calcium Level 8.8 mg/dL (8.6-10.2) Last 24 Hour Vital Signs Date Time Temp Pulse Resp B/P Pulse Ox O2 Delivery O2 Flow Rate FiO2 04/13/17 04:00 99.0 75 19 145/70 100 Room Air 04/12/17 20:00 99.3 79 18 132/63 98 Room Air 04/12/17 16:07 97.9 85 20 139/74 98 Room Air 04/12/17 14:49 97.9 04/12/17 12:01 97.9 72 20 139/70 97 Room Air 04/12/17 09:06 98.1 I&O Intake and Output 04/12/17 04/13/17 19:00 07:00 Intake Total 1490 ml Balance 1490 ml Intake Oral 1490 ml # Voids 4 2 Wound: clean, dry, intact Drains: none Neuro Status: normal Vascular Status: normal Assessment Post-op Diagnosis POD 3 Procedure Performed left gulshan Plan Plan: discharge to home - fu in 2 weeks time LISA BLOCK Apr 13, 2017 08:21
[2017-04-13] MEDS: Docusate 100mg cap ORAL SCH ×2 (08:31→13:36)
[2017-04-13] MEDS: oxyCONTIN 20mg tab ORAL SCH (08:31)
[2017-04-13] MEDS: Enoxaparin 40mg Inj SUBQ SCH (08:36)
[2017-04-13 12:00] VITALS: BP 151/81
--- NOTE | 2017-04-13 15:00 | Internal Med Progress Note ---
Subjective Physician Name Jason Schmidt Attending Physician Michael Hopper Current Medications Medications (Trade) Dose Ordered Sig/[place] Route PRN Reason Start Time Stop Time Status Last Admin Dose Admin Acetaminophen (Tylenol) 650 mg Q4H PRN ORAL Mild Pain (Pain Scale 1-3) 04/10/17 14:00 05/10/17 13:59 04/13/17 13:38 Acetaminophen (Tylenol) 650 mg Q4H PRN ORAL temp>100 04/10/17 14:00 05/10/17 13:59 Acetaminophen/ Hydrocodone Bitart ([place] 5/325) 2 tab Q6H PRN ORAL Severe Pain (Pain Scale 7-10) 04/10/17 14:00 04/17/17 13:59 04/12/17 22:30 Acetaminophen/ Hydrocodone Bitart ([place] 7.5/325) 1 ea Q4H PRN ORAL Moderate Pain (Pain Scale 4-6) 04/10/17 14:00 04/17/17 13:59 Al Hydroxide/Mg Hydroxide (Mylanta) 30 ml Q6H PRN ORAL Nausea/Vomiting from GI upset 04/13/17 12:30 05/13/17 12:29 04/13/17 14:22 Diphenhydramine HCl (Benadryl) 50 mg EVERY 8 HOURS PRN ORAL Itching 04/11/17 23:15 05/11/17 23:14 04/12/17 00:25 Docusate Sodium (Colace) 100 mg THREE TIMES A DAY ORAL 04/10/17 18:00 05/10/17 17:59 04/13/17 13:36 Enoxaparin Sodium (Lovenox) 40 mg DAILY SUBQ 04/11/17 09:00 04/21/17 08:59 04/13/17 08:36 Ferrous Sulfate (Feosol) 325 mg THREE TIMES A DAY ORAL 04/10/17 18:00 05/10/17 17:59 04/13/17 13:36 Hydromorphone HCl (Dilaudid) 1 mg Q4H PRN SUBQ Mild Pain (Pain Scale 1-3) 04/10/17 14:00 04/17/17 13:59 Hydromorphone HCl (Dilaudid) 2 mg Q3H PRN SUBQ Severe Pain (Pain Scale 7-10) 04/10/17 14:00 04/17/17 13:59 04/10/17 20:12 Hydromorphone HCl (Dilaudid) 2 mg Q4H PRN SUBQ Moderate Pain (Pain Scale 4-6) 04/10/17 14:00 04/17/17 13:59 Magnesium Hydroxide (Mom) 30 ml DAILYPRN PRN ORAL Constipation 04/10/17 14:00 05/10/17 13:59 04/13/17 11:19 Oxycodone HCl (OxyCONTIN) 20 mg EVERY 12 HOURS ORAL 04/10/17 21:00 04/17/17 20:59 04/13/17 08:31 Prochlorperazine (Compazine) 10 mg Q6H PRN IVP Nausea & Vomiting 04/10/17 14:00 05/10/17 13:59 04/13/17 09:47 Temazepam (Restoril) 15 mg HSPRN PRN ORAL Insomnia 04/10/17 20:00 04/17/17 19:59 04/13/17 03:47 Allergies: Coded Allergies: CELECOXIB (Verified Allergy, Mild, numbness, 04/12/17) stated by patient. her body start feeling numb. Subjective awake, responsive, NAD, C/O Nausea Objective Last Vital Signs Date Time Temp Pulse Resp B/P Pulse Ox O2 Delivery O2 Flow Rate FiO2 04/13/17 12:00 97 20 151/81 98 Room Air 04/13/17 08:00 98.1 04/10/17 12:35 6.0 Laboratory Tests Test 04/13/17 05:15 White Blood Count 5.5 K/UL (4.8-10.8) Red Blood Count 3.04 M/UL (4.20-5.40) L Hemoglobin 10.0 G/DL (12.0-16.0) L Hematocrit 29.7 % (37.0-47.0) L Mean Corpuscular Volume 98 FL (80-99) Mean Corpuscular Hemoglobin 32.8 PG (27.0-31.0) H Mean Corpuscular Hemoglobin Concent 33.6 G/DL (32.0-36.0) Red Cell Distribution Width 12.3 % (11.6-14.8) Platelet Count 177 K/UL (150-450) Mean Platelet Volume 7.8 FL (6.5-10.1) Neutrophils (%) (Auto) 66.8 % (45.0-75.0) Lymphocytes (%) (Auto) 21.4 % (20.0-45.0) Monocytes (%) (Auto) 9.7 % (1.0-10.0) Eosinophils (%) (Auto) 1.5 % (0.0-3.0) Basophils (%) (Auto) 0.6 % (0.0-2.0) Sodium Level 138 mEQ/L (135-145) Potassium Level 3.8 mEQ/L (3.4-4.9) Chloride Level 98 mEQ/L (98-107) Carbon Dioxide Level 28 mEQ/L (20-30) Anion Gap 12 (5-15) Blood Urea Nitrogen 14 mg/dL (7-23) Creatinine 0.7 mg/dL (0.5-0.9) Estimat Glomerular Filtration Rate > 60 mL/min (>60) Glucose Level 112 mg/dL (74-106) H Calcium Level 8.8 mg/dL (8.6-10.2) Intake and Output 04/12/17 04/13/17 19:00 07:00 Intake Total 1490 ml Balance 1490 ml Intake Oral 1490 ml # Voids 4 2 Objective General: No acute distress, awake and alert HEENT: NCAT, sclera anicteric, PERRL, EOMI. Neck: Supple, no significant jugular venous distention, Lungs: Good inspiratory effort, no accessory muscle use, clear to auscultation bilaterally, no Wheeze or Rales. Heart: Regular rate and rhythm, normal S1/S2, no murmurs Abdomen: soft, nontender, nondistended. Normoactive bowel sounds.Obesity Extremities: No Cyanosis , clubbing or edema. Left hip surgical incision intact. Neuro: A&O x 3, Able to move all extremities Skin: warm, no rashes or lesions Psych: Normal mood and affect Assessment/Plan Assessment/Plan (1) Osteoarthritis of left hip S/P total left hip arthroplasty on 04/10/17. (2) HTN (hypertension) (3) Morbid Obesity. Plan: DC home today DME at home F/U with my office in 1 week. Jason Schmidt MD Apr 13, 2017 15:00
[2017-04-13] MEDS ORDERED: ZOFRAN4 M3 ORAL (16:23)
[2017-04-13] MEDS ORDERED: IBUPROFEN600 MG ORAL (16:23)
[2017-04-13 16:42] VITALS: BP 151/81
--- NOTE | 2017-04-13 16:48 | Internal Med Progress Note ---
Subjective Date of Service: Apr 13, 2017 Physician Name Overton,Mayra Attending Physician Michael Hopper Current Medications Medications (Trade) Dose Ordered Sig/[place] Route PRN Reason Start Time Stop Time Status Last Admin Dose Admin Acetaminophen (Tylenol) 650 mg Q4H PRN ORAL Mild Pain (Pain Scale 1-3) 04/10/17 14:00 05/10/17 13:59 04/13/17 13:38 Acetaminophen (Tylenol) 650 mg Q4H PRN ORAL temp>100 04/10/17 14:00 05/10/17 13:59 Acetaminophen/ Hydrocodone Bitart ([place] 5/325) 2 tab Q6H PRN ORAL Severe Pain (Pain Scale 7-10) 04/10/17 14:00 04/17/17 13:59 04/12/17 22:30 Acetaminophen/ Hydrocodone Bitart ([place] 7.5/325) 1 ea Q4H PRN ORAL Moderate Pain (Pain Scale 4-6) 04/10/17 14:00 04/17/17 13:59 Al Hydroxide/Mg Hydroxide (Mylanta) 30 ml Q6H PRN ORAL Nausea/Vomiting from GI upset 04/13/17 12:30 05/13/17 12:29 04/13/17 14:22 Diphenhydramine HCl (Benadryl) 50 mg EVERY 8 HOURS PRN ORAL Itching 04/11/17 23:15 05/11/17 23:14 04/12/17 00:25 Docusate Sodium (Colace) 100 mg THREE TIMES A DAY ORAL 04/10/17 18:00 05/10/17 17:59 04/13/17 13:36 Enoxaparin Sodium (Lovenox) 40 mg DAILY SUBQ 04/11/17 09:00 04/21/17 08:59 04/13/17 08:36 Ferrous Sulfate (Feosol) 325 mg THREE TIMES A DAY ORAL 04/10/17 18:00 05/10/17 17:59 04/13/17 13:36 Hydromorphone HCl (Dilaudid) 1 mg Q4H PRN SUBQ Mild Pain (Pain Scale 1-3) 04/10/17 14:00 04/17/17 13:59 Hydromorphone HCl (Dilaudid) 2 mg Q3H PRN SUBQ Severe Pain (Pain Scale 7-10) 04/10/17 14:00 04/17/17 13:59 04/10/17 20:12 Hydromorphone HCl (Dilaudid) 2 mg Q4H PRN SUBQ Moderate Pain (Pain Scale 4-6) 04/10/17 14:00 04/17/17 13:59 Magnesium Hydroxide (Mom) 30 ml DAILYPRN PRN ORAL Constipation 04/10/17 14:00 05/10/17 13:59 04/13/17 11:19 Oxycodone HCl (OxyCONTIN) 20 mg EVERY 12 HOURS ORAL 04/10/17 21:00 04/17/17 20:59 04/13/17 08:31 Prochlorperazine (Compazine) 10 mg Q6H PRN IVP Nausea & Vomiting 04/10/17 14:00 05/10/17 13:59 04/13/17 09:47 Temazepam (Restoril) 15 mg HSPRN PRN ORAL Insomnia 04/10/17 20:00 04/17/17 19:59 04/13/17 03:47 Allergies: Coded Allergies: CELECOXIB (Verified Allergy, Mild, numbness, 04/12/17) stated by patient. her body start feeling numb. Subjective 56 YO F admitted for left hip osteoarthritis. S/P total left hip arthroplasty on 04/10/17. Cover for [facility]-Dr Schmidt. Ambulates with walker. Await discharge home today Objective Last Vital Signs Date Time Temp Pulse Resp B/P Pulse Ox O2 Delivery O2 Flow Rate FiO2 04/13/17 16:42 97 151/81 04/13/17 12:00 20 98 Room Air 04/13/17 08:00 98.1 04/10/17 12:35 6.0 Laboratory Tests Test 04/13/17 05:15 White Blood Count 5.5 K/UL (4.8-10.8) Red Blood Count 3.04 M/UL (4.20-5.40) L Hemoglobin 10.0 G/DL (12.0-16.0) L Hematocrit 29.7 % (37.0-47.0) L Mean Corpuscular Volume 98 FL (80-99) Mean Corpuscular Hemoglobin 32.8 PG (27.0-31.0) H Mean Corpuscular Hemoglobin Concent 33.6 G/DL (32.0-36.0) Red Cell Distribution Width 12.3 % (11.6-14.8) Platelet Count 177 K/UL (150-450) Mean Platelet Volume 7.8 FL (6.5-10.1) Neutrophils (%) (Auto) 66.8 % (45.0-75.0) Lymphocytes (%) (Auto) 21.4 % (20.0-45.0) Monocytes (%) (Auto) 9.7 % (1.0-10.0) Eosinophils (%) (Auto) 1.5 % (0.0-3.0) Basophils (%) (Auto) 0.6 % (0.0-2.0) Sodium Level 138 mEQ/L (135-145) Potassium Level 3.8 mEQ/L (3.4-4.9) Chloride Level 98 mEQ/L (98-107) Carbon Dioxide Level 28 mEQ/L (20-30) Anion Gap 12 (5-15) Blood Urea Nitrogen 14 mg/dL (7-23) Creatinine 0.7 mg/dL (0.5-0.9) Estimat Glomerular Filtration Rate > 60 mL/min (>60) Glucose Level 112 mg/dL (74-106) H Calcium Level 8.8 mg/dL (8.6-10.2) Intake and Output 04/12/17 04/13/17 19:00 07:00 Intake Total 1490 ml Balance 1490 ml Intake Oral 1490 ml # Voids 4 2 Objective General: alert, cooperative, no distress, appears stated age Head: normocephalic, without obvious abnormality, atraumatic Eyes: conjunctivae/corneas clear. PERRL, EOM's intact Throat: lips, mucosa, and tongue normal. MMM Neck: supple, symmetrical, trachea midline, and no JVD Lungs: clear to auscultation bilaterally Heart: regular rate and rhythm, S1, S2 normal, no murmur, click, rub or gallop Abdomen: soft, non-tender, non-distended, bowel sounds normal; no masses or organomegaly Extremities: extremities normal, atraumatic, no cyanosis or edema Pulses: 2+ and symmetric Skin: skin color, texture, turgor normal; no rashes or lesions Neurologic: grossly normal, no focal deficits Assessment/Plan Problem List: (1) Osteoarthritis of left hip Assessment & Plan: S/P total left hip arthroplasty on 04/10/17. See ortho note (2) HTN (hypertension) Assessment & Plan: stable off meds. Assessment/Plan Discharge today, 04/13/17 Home with home health and home physical therapy MAYRA OVERTON Apr 13, 2017 16:48
--- NOTE | 2017-04-14 02:30 | Discharge Summary 2 SIG ---
DATE OF ADMISSION: 04/10/2017 DATE OF DISCHARGE: 04/13/2017 HISTORY AND HOSPITAL COURSE: The patient is a very pleasant 56-year-old female, who is admitted after a left total hip arthroplasty. The patient had a benign hospital course requiring no blood transfusion. On date of discharge, the patient had stable vital signs and stable laboratory work. Pain was well controlled on oral medications. She had a good oral diet. She was ambulating well with physical therapy. The patient is being discharged home today on 04/13/2017 with home care as well as home DME. The patient has all pain medications and Lovenox medications at home and has a followup appointment with us in the office on 04/20/2017. On date of discharge, the patient was alert and oriented. She was ambulating well with a walker. Her left hip dressing was clean, dry, and intact and her left lower extremity was neurovascularly intact. We will discharge her home today and follow up with her in the office in 10 days' time for continued outpatient management. Michael Hopper M.D. I have been assigned to dictate discharge summary on this account and I was not involved in the patient's management. Sumeet Dodd DR: Arturo JOB#: [id number] CC:
== END 2017-04-13 17:16 | disposition home or self-care (01) | DRG 470 ==
LOC: SDSOVERFLO 07:16 → 3E 13:40
PROC: 0SRB02Z Replacement of Left Hip Joint with Metal on Polyethylene Synthetic Substitute, Open Approach (ICD-10-PCS; principal; 2017-04-10 09:30)
DX: M16.12 Unilateral primary osteoarthritis, left hip (principal); E66.01 Morbid (severe) obesity due to excess calories; I10 Essential (primary) hypertension; Z68.38 Body mass index [BMI] 38.0-38.9, adult
CPT/HCPCS: 36415; 72170; 80048; 85025; 86850; 86900; 86901; 86920; 87081; 94003; 94150; J2405; J3490

== ENCOUNTER 2017-05-11 10:30 | Outpatient (RCR) | payer BC ==
[~2017-05-11 10:30] MED LIST changes: +ZOFRAN4 M3 ORAL; -ceFAZolin 1gm in D5W 55ml IVP ONE; -celeBREX 200mg Cap **SURGERY PATIENTS ONLY ORAL ONE; -oxyCONTIN 20mg tab ORAL ONE
== END 2017-05-21 | disposition home or self-care (01) ==
LOC: PTY 10:30
DX: M16.12 Unilateral primary osteoarthritis, left hip (principal); Z96.642 Presence of left artificial hip joint

== ENCOUNTER 2017-06-14 10:09 | Outpatient (RCR) | payer BC | END 2017-06-21 | disposition home or self-care (01) | LOC: PTY 10:09 | DX: M16.12 Unilateral primary osteoarthritis, left hip (principal); Z96.642 Presence of left artificial hip joint ==

== ENCOUNTER 2017-07-04 11:00 | Outpatient (RCR) | payer BC | END 2017-07-21 | disposition home or self-care (01) | LOC: PTY 11:00 | DX: M16.12 Unilateral primary osteoarthritis, left hip (principal); Z96.642 Presence of left artificial hip joint ==

== ENCOUNTER 2017-07-19 10:04 | Outpatient (CLI) | payer BC ==
[~2017-07-19] VITALS: Ht 30.5 cm; Wt 0.5 kg
[2017-07-19] MEDS ORDERED: Bupivacaine 0.5% Inj 30 ml vial INJ ONE (10:30)
[2017-07-19] MEDS ORDERED: Depo-Medrol 80mg Vial IARTIC ONE (10:30)
[2017-07-19] MEDS ORDERED: Lidocaine 1% Plain 30 ml INJ ONE (10:30)
--- NOTE | 2017-07-19 11:24 | Pre-Procedure Note/Attestation ---
Pre-Procedure Note/Attestation Complete Prior to Procedure Planned Procedure: right Procedure Narrative: Hip steroid/anesthetic injection Indications for Procedure Pre-Operative Diagnosis: R hip osteoarthrosis Attestation I attest that I discussed the nature of the procedure; its benefits; risks and complications; and alternatives (and the risks and benefits of such alternatives ), prior to the procedure, with the patient (or the patient's legal account retention representative). I attest that, if there was a reasonable possibility of needing a blood transfusion, the patient (or the patient's legal account retention representative) was given the [facility] standardized written summary, pursuant to the [place] Blood Safety Act ([place] Health and Safety Code # 1645, as amended). I attest that I re-evaluated the patient just prior to the surgery and that there has been no change in the patient's H&P, except as documented below: ZURI PATEL M.D. Jul 19, 2017 11:24
--- NOTE | 2017-07-19 12:12 | Diagnostic Imaging Report ---
Indication: Right hip pain, osteoarthropathy Technique: Informed consent obtained prior to commencement of the procedure. Procedural timeout performed. The skin of the right groin region was sterilely prepped and draped. Local anesthesia with posterior lidocaine. The 22-gauge spinal needle was inserted under fluoroscopic guidance, aiming for the superolateral head neck junction. Small amount of contrast was injected, confirming entry into the joint space. A mixture of 4 mL of 1% lidocaine, 4 mm Marcaine, and 80 mg in 2 mL Depo-Medrol was attached to the needle, but could not be injected. The needle was therefore repositioned, and needle access into the joint again confirmed with injection of contrast. This time, it was possible to injected the drug mixture successfully. The needle was removed. The patient tolerated the procedure well, without immediate complication. Total fluoroscopy time 2.5 minutes. Total dose area product 122 dGycm2 Comparison: None Findings: Interprocedural images document contrast distribution within the joint, confirming intra-articular position of the needle tip Impression: Successful therapeutic injection of the right hip for treatment of painful osteoarthrosis, as described
== END 2017-07-19 12:04 | disposition home or self-care (01) ==
LOC: RAD 10:04
DX: M16.11 Unilateral primary osteoarthritis, right hip (principal)
CPT/HCPCS: 73525; J1040; J2001; J3490